=== PATIENT | male | born 1945 | race Caucasian/White ===

== ENCOUNTER 2016-09-02 07:30 | Inpatient (IN) | payer MEDICARE, BC ==
--- NOTE | 2016-08-27 18:28 | HP ---
PREOPERATIVE HISTORY AND PHYSICAL: DATE OF ADMISSION/SURGERY: 09/02/16 DATE OF OFFICE VISIT: 08/27/16 ATTENDING SURGEON: Dr. Rocael Clifton. PROCEDURE: Right total shoulder reverse. CHIEF COMPLAINT: Right shoulder pain. HISTORY OF PRESENT ILLNESS: Mr. Gallardo is a 71-year-old male who presents to the clinic for ongoing right shoulder pain due to severe shoulder osteoarthritis and rotator cuff arthropathy. The patient has failed conservative measures such as intraarticular injections and physical therapy. Therefore, he has agreed to undergo a right total shoulder reverse with Dr. Clifton on 09/02/16. PAST MEDICAL HISTORY: Hypertension, heart disease, cardiomyopathy, history of biventricular ICD placement, and arthritis. PAST SURGICAL HISTORY: Appendectomy, back surgery, biventricular ICD placement. The patient denies a history of complications with anesthesia. MEDICATIONS: 1. Coreg 25 mg 1 by mouth twice a day. 2. Lasix 20 mg 1 by mouth every morning. 3. Candesartan 32 mg 1 by mouth daily. 4. Vitamin B12 injection once a month. 5. Vitamin D3 5000 units 1 by mouth every day. 6. Aspirin 325 mg 1 by mouth every day. 7. Amlodipine 5 mg 1 by mouth daily. ALLERGIES: No known drug allergies. FAMILY HISTORY: Mom, diabetes and cancer. Uncles with heart disease, and father with hypertension. SOCIAL HISTORY: The patient lives with his spouse. He is right-handed. He is a retired dispatcher maintenance. He is a former smoker, he quit in the , he used to smoke 1 pack per day. He drinks alcohol on occasion. He denies illegal drug use. REVIEW OF SYSTEMS: A 14-point review of systems was reviewed with the patient and positive for shortness of breath with exertion, and numbness and tingling due to carpal tunnel syndrome in the left hand. Otherwise negative. The patient denies history of DVT, PE, or bleeding disorder. PHYSICAL EXAMINATION GENERAL: Well-developed, well-nourished, 71-year-old male, in no acute distress. VITAL SIGNS: Height 71, weight 270, pulse 60, blood pressure 132/84, respiratory rate 16, and BMI 33.6. HEENT: Normocephalic and atraumatic. Throat: Clear. NECK: Supple. PULMONARY: Lungs are clear to auscultation bilaterally. No wheezing, rhonchi, or rales. CARDIOVASCULAR: Regular rate and rhythm. S1 and S2. No murmurs, gallops, and rubs. No edema. ABDOMEN: Positive bowel sounds. Soft and nontender. MUSCULOSKELETAL: Right shoulder: Skin is intact, no erythema. Forward flexion to 95, abduction to 90, external rotation to 25, internal rotation to the lateral hip. Pain with rotator cuff testing. +4/5 strength with supraspinatus belly press and bear hug. Tenderness over the joint line. +2 radial pulse. Sensation is intact to light touch distally. NEURO: Alert and oriented x3. Cranial nerves grossly intact. Sensation is intact to light touch. DIAGNOSTIC STUDIES: MRI revealed severe glenohumeral and AC joint arthritis, presence of a loose body, and partial rotator cuff tearing. IMPRESSION: Severe right shoulder arthritis and rotator cuff arthropathy. PLAN: The patient is scheduled to undergo a right total shoulder reverse with Dr. Clifton on 09/02/16. He has been cleared by his paper machine backtender and primary care physician. He was instructed to stop his aspirin 1 week prior to surgery. He will return to the office 10 to 14 days postop for followup and suture removal. A prescription for Percocet was e-prescribed to his pharmacy for postoperative pain management. It is recommended that he get an over-the- counter stool softener to prevent opiate-induced constipation. JONNA SMITH [id number]/[facility] #: [id number] DARLENE
[~2016-09-02 07:30] MED LIST: Buffered Lidocaine 1% SYR 3ML* 3 ML/SYR SYRINGE INTRADERM ONE; Dexamethasone IV* 4 MG/ML 1 ML (4 MG) IV SLOW PU ONE; Famotidine IV* 10 MG/ML 2 ML (20 mg) IV ONE
[2016-09-09] MEDS ORDERED: Metoclopramide TAB* 10 MG PO ONE (06:00)
[2016-09-09] MEDS ORDERED: Gabapentin CAP(*) 300 MG PO ONE (06:00)
[2016-09-09] MEDS ORDERED: Famotidine IV* 10 MG/ML 2 ML (20 mg) IV ONE (06:00)
[2016-09-09] MEDS ORDERED: Acetaminophen IV 1GM/100ML * 100 ML IVPB ONE (06:00)
[2016-09-09] MEDS ORDERED: Buffered Lidocaine 1% SYR 3ML* 3 ML/SYR SYRINGE INTRADERM ONE (06:00)
[2016-09-09] MEDS ORDERED: Metoclopramide TAB* 10 MG ONE (06:19)
[2016-09-09] MEDS ORDERED: Gabapentin CAP(*) 300 MG ONE (06:19)
[2016-09-09] MEDS ORDERED: Famotidine IV* 10 MG/ML 2 ML (20 mg) ONE (06:19)
[2016-09-09] MEDS ORDERED: Buffered Lidocaine 1% SYR 3ML* 3 ML/SYR SYRINGE ONE (06:20)
[2016-09-09] MEDS ORDERED: ceFAZolin 2 GM PREMIX (*) 2 GM/50 ML BAG IVPB ONE (06:20)
[2016-09-09] MEDS ORDERED: Acetaminophen IV 1GM/100ML * 100 ML ONE (06:21)
[2016-09-09] MEDS ORDERED: fentaNYL* 50 MCG/ML 5 ML VIAL (250 MCG VIAL) ONE ×2 (07:03→09:47)
[2016-09-09] MEDS ORDERED: Ondansetron INJ* 2 MG/ML VIAL ONE (07:03)
[2016-09-09] MEDS ORDERED: Midazolam* 1 MG/ML 5 ML VIAL (5 MG) ONE (07:03)
[2016-09-09] MEDS ORDERED: Dexamethasone IV* 4 MG/ML 1 ML (4 MG) ONE (07:03)
[2016-09-09] MEDS ORDERED: Propofol* 10 MG/ML 20 ML BTL IV PUSH ONE (07:03)
[2016-09-09] MEDS ORDERED: Lidocaine 2% PF * 5 ML VIAL ONE (07:03)
[2016-09-09] MEDS ORDERED: Rocuronium* 10 MG/ML VIAL ONE (07:03)
[2016-09-09] MEDS ORDERED: ROPIVACAINE 5 MG/ML 30 ML BTL (0.5%) ONE (07:03)
[2016-09-09] MEDS ORDERED: Ketorolac INJ* 30 MG/ML 1 ML VIAL ONE (07:03)
[2016-09-09] MEDS ORDERED: Phenylephrine INJ* 10 MG/ML 1 ML VIAL (10 MG) ONE ×2 (07:03→10:44)
[2016-09-09] MEDS ORDERED: KETAMINE HCL* 50 MG/ML 10 ML VIAL ONE (07:03)
[2016-09-09] MEDS ORDERED: Bupivacaine 0.5% SDV PF* 30 ML VIAL ONE (07:47)
[2016-09-09] MEDS ORDERED: Ondansetron INJ* 2 MG/ML VIAL IV PRN ×2 (09:39→12:02)
[2016-09-09] MEDS ORDERED: HYDROmorphone INJ* 1 MG/ML CARPUJECT SYRINGE IV PRN (09:39)
[2016-09-09] MEDS ORDERED: fentaNYL* 50 MCG/ML 2 ML VIAL (100 MCG VIAL) IV PRN (09:39)
[2016-09-09] MEDS ORDERED: HYDROmorphone INJ* 1 MG/ML CARPUJECT SYRINGE ONE ×2 (11:43→12:53)
[2016-09-09] MEDS ORDERED: Acetaminophen TAB* 325 MG PO PRN (12:02)
[2016-09-09] MEDS ORDERED: oxyCODONE TAB* 5 MG TAB PO PRN (12:02)
[2016-09-09] MEDS ORDERED: Morphine INJ* 2 MG/ML 1 ML CARPUJECT IV PRN (12:02)
[2016-09-09] MEDS ORDERED: Polyethylene Glycol 3350* 17 GM PACKET PO PRN (12:02)
[2016-09-09] MEDS ORDERED: oxyCODONE/Acetamin 5/325 MG* TAB PO PRN (12:02)
[2016-09-09] MEDS ORDERED: Temazepam CAP* 15 MG PO PRN (12:02)
[2016-09-09] MEDS ORDERED: diPHENhydraMINE IV* 50 MG/ML 1 ml VIAL (BENADRYL) IV PRN (12:02)
[2016-09-09] MEDS ORDERED: Enoxaparin(*) 40 MG/0.4 ML SYR SUBCUT SCH (13:00)
--- NOTE | 2016-09-09 13:59 | RAD ---
HISTORY: Postop COMPARISONS: January 20, 2016 VIEWS: 4, frontal and axillary views of the right shoulder FINDINGS: BONE DENSITY: Normal. BONES: The patient is status post right shoulder arthroplasty. There is no hardware failure or osteolysis. JOINTS: There is no arthropathy. ALIGNMENT: There is no dislocation. SOFT TISSUES: Unremarkable. OTHER FINDINGS: None. IMPRESSION: STATUS POST RIGHT SHOULDER ARTHROPLASTY
[2016-09-09] MEDS: oxyCODONE/Acetamin 5/325 MG* TAB PO PRN ×2 (14:00→20:15)
[2016-09-09 14:26] LABS: Hematocrit 41 % (42-52); Hemoglobin 13.7 g/dl (14.0-18.0)
[2016-09-09] MEDS: ceFAZolin 1 GM in Dextrose (*) 1 GM/50 ML BAG IVPB SCH ×2 (16:34→23:49)
--- NOTE | 2016-09-09 17:20 | PN ---
Progress Note - Progress Note Note: Seen and examined at 4 pm. Pt doing well post op from right reverse. Family at bedside. Breathing comfortably. Pain controlled. No complaints. Temp Pulse Resp BP Pulse Ox 97.2 F 60 18 119/68 99 09/09/16 15:27 09/09/16 15:27 09/09/16 15:27 09/09/16 15:27 09/09/16 16:00 NAD. AAOx3. right shoulder dressing in place. arm in sling. SILT 1st DWS, index and long finger, and ulnar aspect of small finger. brisk cap refill. post op xrays reviewed and acceptable A/P 71 M with multiple medical problems s/p right shoulder reverse. post op abx NWB. sling at all times except for PT continue drain with emptying qshift. record drainage hct in AM. heparin and SCDs while in house d/c tomorrow if stable
[2016-09-09] MEDS: Docusate CAP* 100 MG PO SCH (20:15)
[2016-09-10] MEDS: oxyCODONE/Acetamin 5/325 MG* TAB PO PRN ×3 (04:36→13:37)
[2016-09-10 07:29] LABS: BUN/Creatinine Ratio 25.5 (8-20); Calcium 8.4 mg/dL (8.6-10.3); EGFR African American 97.2 (>60); EGFR Non-African American 75.6 (>60); Potassium 4.2 mmol/L (3.5-5.0)
[2016-09-10] MEDS: ceFAZolin 1 GM in Dextrose (*) 1 GM/50 ML BAG IVPB SCH (07:59)
--- NOTE | 2016-09-10 08:17 | PN ---
Progress Note - Progress Note Note: POD#1 from R reverse TSA. doing well. pain controlled. denies numbness/tingling , CP/SOB. mild nausea Temp Pulse Resp BP Pulse Ox 97.7 F 59 16 146/67 96 09/10/16 07:22 09/10/16 07:22 09/10/16 07:22 09/10/16 07:22 09/10/16 07:22 NAD. right shoulder: dressing in place. sling in place. drain in place. able to flex/ext elbow, wrist, and hand. SILT grossly distally. 2+ radial pulse Laboratory Results - last 24 hr 09/09/16 09/10/16 14:19 06:42 Hgb 13.7 L Hct 41 L Sodium 133 Potassium 4.2 Chloride 101 Carbon Dioxide 26 Anion Gap 6 BUN 25 H Creatinine 0.98 Est GFR ( Amer) 97.2 Est GFR (Non-Af Amer) 75.6 BUN/Creatinine Ratio 25.5 H Glucose 133 H Calcium 8.4 L Intake & Output 09/08/16 09/09/16 09/10/16 09/11/16 06:59 06:59 06:59 06:59 Intake Total 3630 Output Total 2100 Balance 1530 Weight 238 lb Intake: IV Fluids 2049 LR 2000 NS 50ML, Cefazolin 2G 50 Oral 1580 Output: Hemovac Amount #1 425 Casanova 1675 A/P POD#1 from R reverse TSA. NWB. PT to work on passive ROM - FF 90, ABD 90, ER 30 need drain output. may d/c drain prior to discharge HCT stable d/c after completed abx, when drain is pulled, and after PT pt to follow up in 10-14 days
[2016-09-10] MEDS ORDERED: Enoxaparin(*) 40 MG/0.4 ML SYR SUBCUT SCH (09:00)
[2016-09-10] MEDS: Docusate CAP* 100 MG PO SCH (09:03)
[2016-09-10 11:24] VITALS: BP 138/55
--- NOTE | 2016-09-10 12:21 | OP ---
DATE OF OPERATION: 09/09/16 - ROOM #352 DATE OF : 47 SURGEON: Rocael Clifton MD ASSISTANTS: 1. JONNA Vinson. 2. JONNA Mcneil ANESTHESIOLOGIST: Dr. Álvaro Styles. ANESTHESIA: General. PRE-OP DIAGNOSIS: Right shoulder primary osteoarthritis with rotator cuff tendinitis. POST-OP DIAGNOSIS: Right shoulder primary osteoarthritis with rotator cuff tendinitis. OPERATIVE PROCEDURE: Right shoulder reverse shoulder arthroplasty and open biceps tenodesis. COMPLICATIONS: None. ESTIMATED BLOOD LOSS: 250 cc. OUTPUT: One drain placed intra-articularly. IMPLANTS USED: A Tornier Aequalis reversed to threaded post base plate which was 29 mm in diameter with a 29 mm base and a 40 mm length, centered Glenosphere sized 42 mm, size 7B Aequalis Flex humeral stem and a center reversed tray with a size 6 mm poly. INDICATIONS: Antelmo Gallardo is a 71-year-old male who has had ongoing right shoulder pain with severe osteoarthritis and rotator cuff arthropathy. He has failed conservative management including injections and physical therapy. It is impacting his quality of living. After a discussion about the risks and benefits of surgery, he has elected to proceed. He underwent preoperative clearance by his primary care doctor as well as his family and consumer sciences professor who have stabilized him and directed how to handle his care in the perioperative period. Risks and benefits were discussed at length which included, but are not limited to, bleeding, infection, damage to nerves, vessels, surrounding structures, the wound not healing, persistent pain, need for further surgery, stiffness, fracture, incomplete relief of symptoms, dislocation, stiffness, loss of use, risk of DVT, risk of stroke, heart attack, , as well as risk of anesthesia. He has elected to proceed. DESCRIPTION OF PROCEDURE: The patient was greeted in the preoperative area by the attending surgeon. Correct extremity was marked. Consent was confirmed. The patient was then brought back to the operating suite where he was placed in the supine position on the operating table. He then underwent A-line placement in his left hand by the anesthesiologist. The patient then underwent general anesthesia and endotracheal intubation after which a Casanova was placed. The patient was then positioned on the bed in a lazy beach chair position with 2 pillows under his knee and a pillow on his stomach. After he was secured, the right shoulder was prepped and draped in the usual sterile fashion beginning with chlorhexidine soap and scrub and alcohol wipe, and a final prep with ChloraPrep. Preop ROM was forward flexion to 140, abduction to 90, and ER to 20. A defibrillator was placed on the chest as well as a magnet over his pacemaker device, which was monitored at all times by Anesthesiology. After appropriate surgical pause indicating site, side, and procedure and administration of antibiotics, the deltopectoral incision was made sharply with #15 blade. The soft tissues were carefully dissected. The cephalic vein was readily available deep to the incision. This was then carefully dissected and taken laterally with the deltoid. As the deltopectoral interval was identified , a Kolbel retractor was placed for retraction. A curved blunt Hohmann was placed above the coracoid to help with retraction. This exposed the anterior aspect of the shoulder. The lateral aspect of the short head of the biceps was identified and the clavipectoral fascia was released. The CA ligament was released. Further dissection carried out to show the pectoralis insertion, the proximal 1.5 cm were released. The biceps were then tenodesed at this point using a #5 Ti-Cron suture. Once the biceps tenodesis was done, it was sharply tenotomized just proximal to that. The Metzenbaum scissors was used to follow the biceps trajectory proximally, which found the biceps groove and allowed access to the joint. At this point, the subscap was carefully elevated using a subscap peel approach with electrocautery device. A #5 Ti-Cron was used as a tack suture to allow for retraction. The shoulder was very stiff prior to surgery, and therefore gentle external rotation was done to release this. A good deal of the supraspinatus tendon was still intact and some of this required releasing. As the shoulder was gently externally rotated, this demonstrated a very large anterior inferior spur and complete cartilage loss with grade 4 changes. Again carefully this was released with care to try to release the capsule. The 3 sisters were identified and then suture ligated and then cut with electrocautery device. Gently as the inferior spur was identified , a Rivas was used to help expose with care to hug it to the bone so there was no risk to the neurovascular bundle. A spur was identified, again it was quite large. This was carefully removed so as to expose the neck better using an osteotome and a rongeur. This again was a very large spur and carried throughout the inferior humerus. Again this was meticulously done. As the spur was identified, once it was carefully released with a Darrach retractor in the joint, this has allowed for exposure of the humeral head. At this point, the neck head was then marked out using the Bovie device. The sagittal saw was used to make the provisional head cut. This was removed en liz. The humerus was then prepared in usual fashion, beginning with a canal finder and then the sounding device was set to about 20 degrees of retroversion. This was sounded all the way to a size 8. Broaching began starting at the starting broach and then sequentially stopped at around 6, which had a good metaphyseal purchase. Head protector was then used to attach to the stem and the stem was then replaced back into the joint. Attention was directed to the glenoid. The posterior glenoid retractor was then placed into the joint and with gentle constant pressure on the posterior aspect, the Hohmann was placed proximally. The subscap was then released of its adhesions to the glenohumeral ligaments. The subscap was then fully mobilized. The neck retractor was then used to expose the anterior aspect of the labrum. A needle-type Bovie was then used to remove the labrum en liz and exposed the bone. There was quite a bit of glenoid wear. This was first determined on the CT scan, which showed more posterior wear than anteriorly. There were osteo-phytes as well anteriorly. Once the labrum was released superiorly all the way to the 5 o'clock position, repositioning the retractors and with gentle tension on the inferior labrum, the needle-tip Bovie was used to release directly off the bone inferior from this 5 o'clock to 7 o'clock position of the labrum to expose the inferior aspect of the scapula. Again, there was quite a bit of wear, there were grade 4 changes. Once this was done, a provisional marking at the center of the glenoid was then made. The size 29 and 28 guide was then placed in the joint and then the starting pin was placed. This was about to a depth of 36 to 37 mm from the measuring guide. The reaming device was then used and again more bone was reamed anteriorly due to the posterior wear. The size 29 hand bunch maker was then used to complete the reaming and allow for the Glenosphere to sit properly. All the soft tissues were carefully protected during this time. After this was done, the 8 mm cannulated drill bit was then used to drill the 8 mm hold and a 6.5 mm drill was used to drill bicortically. This was then tapped to a depth of about 40 mm. The size 40 mm length baseplate was chosen with a 29-mm Glenosphere set. This was then screwed into place with excellent purchase. Then the 4-0 locking screws were then drilled appropriately to the appropriate depth and length with care to try to place superior anterior as well as inferior posterior. All 4 screws were passed and the 29 Glenosphere was then brought to the field and it was gently impacted into place with good purchase. The set screw was then used to screw it down with good fixation. Carefully, the retractors were removed and the shoulder was then delivered through the wound. At this point, there was a large loose body that was identified that was approximately 3 cm x 3 cm in the inferior recess. This was carefully removed in total. The stem was found to have loosened in the humerus. This was then carefully removed. It was determined that the initial neck cut was not low enough, therefore after doing more releases and a revision humeral cut. Once the sagittal saw was used to do the humeral cut again, the reaming began again starting with a size 5 broach, with again 20 degrees offset guide placed. This was then broached up to a size 7 B stem with excellent purchase. The reamer was then used to ream any large edges of bone. Any excess bone was removed. At this point, the center tray and the trial poly were placed on the humeral prosthesis and the shoulder was reduced. It was found to reduce quite well with good fit. There was normal amount of shuck, forward flexion to about 150, abduction to about 100 degrees, external rotation to about 35 degrees. The implants were chosen and brought to the back table. The shoulder was dislocated again. The humeral stem with the poly was removed en liz and prepared on the back table by the attending surgeon. At this point, decision was made to try to repair the subscap. The provisional drill holes were used to place #5 Ethibond sutures. Attention on the subscap was quite significant, however; therefore there was a chance it was not going to be able to be repaired. The final implants were prepared on the back table by the attending surgeon. These were impacted with good fixation. This was then brought back to the shoulder, was brought up to the operative field and impacted into position with good fit. The shoulder was then reduced and taken through range of motion which was the same. The sutures were then attempted to pass through the subscap. Again the tension was quite tight and a decision was made to not repair the subscap. Sutures were then removed. The wound was then copiously irrigated with sterile saline. A drain was placed in the intraarticular space. The deltopectoral interval was closed with #5 Ti-Cron in an interrupted fashion to leonides the deltopectoral interval. The wound was irrigated again and the subcutaneous tissues were closed with 2-0 Vicryl and the skin with 3-0 Monocryl. Sterile dressings were applied. Marcaine 30 cc were injected about the wound. A Cryo/Cuff and a regular sling were then placed on the patient and he was awoken from anesthesia and transferred to PACU in stable condition. POSTOPERATIVE PLAN: He will be admitted overnight with 24 hours of perioperative antibiotics as well as the Casanova will continue until postop day # 1. The drain will continue again till postop day #1 and we will follow his hematocrit overnight. He will likely be discharged on postop day #1. He will be allowed passive motion and forward flexion to 90, abduction to about 90, external rotation to 30 degrees. He will be allowed elbow, wrist, and hand range of motion and pendulum exercises. He is not allowed to weight bear. I will see the patient back in 10 to 14 days. DVT prophylaxis considered but deferred and will be done in the hospital with subcutaneous heparin, but he will be discharged without DVT prophylaxis. CC: PCP, Dr. De Leon* [id number]/[facility] #: [id number] DARLENE
--- NOTE | 2016-09-10 12:30 | PN ---
Progress Note - Progress Note Note: Patient seen OOB in chair doing well. Ready to be discharged home Drain with about 250 cc blood in hemovac drain No active drainage from incision Hemovac drain tube pulled, tip intact, no complications Discharge home today follow up in 10- 14 days as scheuled with Dr. Clifton Patient states he has pain medication and stool softener at home
--- NOTE | 2016-09-12 01:15 | DS ---
DISCHARGE SUMMARY: DATE OF ADMISSION: 09/09/16 DATE OF DISCHARGE: 09/10/16 ADMITTING PHYSICIAN: Rocael Clifton MD. ADMITTING DIAGNOSIS: Right shoulder arthritis. DISCHARGE DIAGNOSIS: Right shoulder arthritis. HISTORY OF PRESENT ILLNESS: Antelmo Gallardo is a 71-year-old gentleman who was admitted for elective right shoulder reverse arthroplasty, which took place on 09/09/16. He received perioperative antibiotics and a Casanova was placed intraoperatively. He tolerated the procedure well. Intraoperatively, a drain was placed. He was transferred to the PACU in stable condition. He was kept on floor overnight. Labs and vitals were obtained. He was hemodynamically stable with a stable hematocrit. The drain output was drained overnight and diminished by the morning. His pain is well controlled by oral pain medication. The drain was removed on postop day 1 with a tip intact. He was instructed with physical therapy exercises on what he could do and he received 24 hours of postoperative antibiotics. Once his pain was controlled, he met his physical therapy guidelines and met discharge criteria, he was discharged home in satisfactory condition. DISCHARGE MEDICATIONS: Include all of his admitting medications includin. Amlodipine. 2. Aspirin. 3. Candesartan. 4. Coreg. 5. Lasix. 6. Vitamin B12. 7. Vitamin D3. 8. He was discharged with oxycodone for additional pain medication. DISCHARGE CONDITION: Good. FOLLOW UP: He will follow up with Dr. Clifton in 10 to 14 days. He will follow up with his PCP as needed. [id number]/[facility] #: [id number] DARLENE
== END 2016-09-10 13:40 | disposition home or self-care (01) | DRG 483 ==
LOC: AA 09-09 05:59 → SSU 09-09 13:28
PROVIDERS: ADMIT Orthopaedic Surgery; ATTEND Orthopaedic Surgery
PROC: 0RRJ00Z Replacement of Right Shoulder Joint with Reverse Ball and Socket Synthetic Substitute, Open Approach (ICD-10-PCS; principal; 2016-09-10)
PROC: 0LS30ZZ Reposition Right Upper Arm Tendon, Open Approach (ICD-10-PCS; 2016-09-10)
DX: M19.011 Primary osteoarthritis, right shoulder (principal); I42.9 Cardiomyopathy, unspecified; Z79.82 Long term (current) use of aspirin; I10 Essential (primary) hypertension; Z95.810 Presence of automatic (implantable) cardiac defibrillator; Z83.3 Family history of diabetes mellitus; Z82.49 Family history of ischemic heart disease and other diseases of the circulatory system; Z87.891 Personal history of nicotine dependence; G47.33 Obstructive sleep apnea (adult) (pediatric); M75.21 Bicipital tendinitis, right shoulder; E66.9 Obesity, unspecified; E78.2 Mixed hyperlipidemia; Z86.010 Personal history of colon polyps; Z68.34 Body mass index [BMI] 34.0-34.9, adult; Z80.0 Family history of malignant neoplasm of digestive organs; E55.9 Vitamin D deficiency, unspecified
CPT/HCPCS: 36415; 80048; 85014; 85018; 88304; 88311; A9270-GY; C1713; C1776; J0690; J1100; J1170; J1650; J1885; J2250; J2405; J2704; J2795; J3010

== ENCOUNTER 2018-02-22 12:39 | Inpatient (IN) | payer MEDICARE, BC ==
--- NOTE | 2018-02-16 13:40 | HP ---
HISTORY AND PHYSICAL: DATE OF ADMISSION: 02/22/18 PROVIDER: Dr. Rosio Adamson.* (DICTATED BY JONNA GALICIA) HISTORY OF PRESENT ILLNESS: The patient is a 73-year-old gentleman with severe left hip pain over the last few months. He has failed conservative treatment with anti-inflammatories, pain medication and home exercise program. Pain is a 9/10 and he has failed an ultrasound-guided hip injection. He would like to undergo a left total hip arthroplasty with Dr. Rosio Adamson. PAST MEDICAL HISTORY: 1. Hypertension. 2. Heart disease. 3. Heart arrhythmia. 4. Osteoarthritis. PAST SURGICAL HISTORY: 1. Defibrillator placement in 2015. 2. Right reverse total shoulder with Dr. Clifton in 2016. 3. Lumbar spine surgery in 1996. 4. Appendectomy. 5. Cataract excision, left eye in 2016. MEDICATIONS: 1. Amlodipine 5 mg 1 by mouth every day. 2. Coreg 25 mg 1 by mouth twice a day. 3. Lasix 20 mg 1 by mouth every other morning. 4. Candesartan 32 mg 1 by mouth daily. 5. Vitamin B12. 6. Vitamin D3 5000 units. 7. Aspirin 81 mg. ALLERGIES: No known drug allergies. FAMILY HISTORY: Maternal diabetes and cancer. Multiple uncles with heart disease. SOCIAL HISTORY: The patient lives with his . He is retired. Does not smoke or use recreational drugs. Drinks six alcoholic beverages per week. Normally very active with golfing and trap shooting. Right-hand dominant. REVIEW OF SYSTEMS: General: Denies fevers, chills, or night sweats. No known anesthesia problems. HEENT: Denies headaches, lightheadedness, or syncopal episodes. Cardiothoracic: Denies chest pain or heart palpitations. Pulmonary : Denies shortness of breath with exertion, chronic cough, or COPD. GI: Denies any nausea, vomiting, diarrhea, or constipation. : Denies any nocturia, urinary frequency or urgency. MSK: Admits to left hip pain. Denies any chronic or intermittent back pain. Neuro: Denies any paresthesias or numbness. Integument: Denies any abrasions, lesions, rashes, lumps, or open sores. PHYSICAL EXAMINATION GENERAL: The patient is alert and oriented x3 with appropriate mood and affect , appropriate dress and hygiene. No acute distress. HEENT: Normocephalic, atraumatic. Hearing and vision grossly intact. PULMONARY: Lungs are clear to auscultation bilaterally with no wheezes, rales, or rhonchi. CARDIO: Regular rate and rhythm. Normal S1 and S2. No appreciable S3 or S4. No murmurs, rubs, or gallops. MSK: Left lower extremity: Inspection of the left hip reveals no erythema or ecchymosis. Skin is warm, dry, and intact. Range of motion of the left hip is 90 degrees of flexion, 0 degrees of internal and external rotation with pain with attempted movement. He has a positive log roll with pain. Negative straight leg raise. He is able to slightly abduct the hip with groin pain. He is neurovascularly intact distally with a 2+ dorsalis pedis pulse. IMPRESSION: Left hip osteoarthritis, severe, end-stage. PLAN: To the OR for a left total hip arthroplasty to be performed by Dr. Adamson on 02/22/18. He will follow up in 10 to 14 days postoperatively for suture removal. Informed consent was obtained today and the risks, benefits, and complications were reviewed with the patient by Dr. Adamson. JONNA GALICIA [id number]/[facility] #: [id number] DARLENE
[~2018-02-22 12:39] MED LIST changes: +Buffered Lidocaine 0.9% SYRIN* 5 ML/SYR SYRINGE INTRADERM ONE; -Buffered Lidocaine 1% SYR 3ML* 3 ML/SYR SYRINGE INTRADERM ONE; -Dexamethasone IV* 4 MG/ML 1 ML (4 MG) IV SLOW PU ONE; -Famotidine IV* 10 MG/ML 2 ML (20 mg) IV ONE
[2018-02-22] MEDS ORDERED: ceFAZolin 2 GM PREMIX (*) 2 GM/50 ML BAG IVPB ONE (13:04)
[2018-02-22] MEDS ORDERED: Bupivacaine 0.5% PF 10 ML VIAL INJ ONE ×2 (15:01→15:19)
[2018-02-22] MEDS ORDERED: Midazolam* 1 MG/ML 5 ML VIAL (5 MG) ONE (15:12)
[2018-02-22] MEDS ORDERED: fentaNYL* 50 MCG/ML 2 ML VIAL (100 MCG VIAL) ONE ×2 (15:30→16:46)
[2018-02-22] MEDS ORDERED: Midazolam* 1 MG/ML 2 ML VIAL (2 MG) ONE (16:09)
[2018-02-22] MEDS ORDERED: Ondansetron INJ* 2 MG/ML VIAL IV PRN ×2 (17:05→17:06)
[2018-02-22] MEDS ORDERED: fentaNYL* 50 MCG/ML 2 ML VIAL (100 MCG VIAL) IV PRN (17:05)
[2018-02-22] MEDS ORDERED: Naloxone* 0.4 MG/ML 1 ML VIAL IV PRN (17:05)
[2018-02-22] MEDS ORDERED: HYDROcodone/ACETAMIN 5-325 MG* 1 TAB PO PRN (17:05)
[2018-02-22] MEDS ORDERED: oxyCODONE/Acetamin 5/325 MG* TAB PO PRN ×2 (17:05→17:06)
[2018-02-22] MEDS ORDERED: HYDROmorphone INJ* 0.5 MG/0.5 ML SYRINGE IV PRN (17:05)
[2018-02-22] MEDS ORDERED: Cyclobenzaprine TAB* 10 MG PO PRN (17:06)
[2018-02-22] MEDS ORDERED: Polyethylene Glycol 3350* 17 GM PACKET PO PRN (17:06)
[2018-02-22] MEDS ORDERED: Magnesium Hydroxide LIQ* 30 ML UDC PO PRN (17:06)
[2018-02-22] MEDS ORDERED: oxyCODONE TAB* 5 MG TAB PO PRN (17:06)
[2018-02-22] MEDS ORDERED: diPHENhydraMINE IV* 50 MG/ML 1 ml VIAL (BENADRYL) IV PRN (17:06)
[2018-02-22] MEDS ORDERED: Bisacodyl SUPP* 10 MG SUPP PR PRN (17:06)
[2018-02-22] MEDS ORDERED: Ondansetron TAB* 4 MG PO PRN (17:06)
--- NOTE | 2018-02-22 17:53 | RAD ---
INDICATION: Left hip total replacement surgery. COMPARISON: Comparison is made with a prior x-ray study of the left hip from January 13, 2018. TECHNIQUE: A single portable AP view of the left hip was obtained in the operating room. FINDINGS: The patient is undergoing a total left hip replacement surgery. The acetabular prostheses is in place and there is a femoral prostheses template in place. IMPRESSION: INTRAOPERATIVE CONTROL FILMS.
[2018-02-22] MEDS ORDERED: EPHEDrine (Pressors)* 50 MG/ML VIAL ONE (17:55)
[2018-02-22] MEDS ORDERED: Acetaminophen TAB* 325 MG PO SCH (18:00)
--- NOTE | 2018-02-22 18:58 | RAD ---
INDICATION: Status post total left hip replacement surgery. COMPARISON: Comparison is made with a prior study from January 13, 2018. TECHNIQUE: An AP view of the pelvis and frontal and lateral views of the left hip were obtained. FINDINGS: The patient is status post total left hip replacement surgery. The bones and prostheses are in normal alignment. There is a small amount of air within the lateral soft tissues consistent with the patient's recent surgery. There is moderate osteoarthritic change in the right hip. IMPRESSION: STATUS POST TOTAL LEFT HIP REPLACEMENT SURGERY.
[2018-02-22] MEDS ORDERED: hydrALAZINE IV* 20 MG/ML VIAL ONE (19:15)
[2018-02-22] MEDS ORDERED: hydrALAZINE IV* 20 MG/ML VIAL IV SLOW PU ONE (19:16)
[2018-02-22] MEDS ORDERED: Acetaminophen TAB* 325 MG ONE (19:34)
[2018-02-22] MEDS ORDERED: Carvedilol TAB* 25 MG PO SCH (21:00)
[2018-02-22] MEDS: Morphine VIAL* 4 MG/ML VIAL (1 ml vial) IV PRN ×2 (21:01→23:13)
[2018-02-22] MEDS: Magnesium Hydroxide LIQ* 30 ML UDC PO SCH (21:51)
[2018-02-22] MEDS: Docusate CAP* 100 MG PO SCH (21:51)
[2018-02-22] MEDS ORDERED: Warfarin TAB(*) 6 MG PO ONE (22:00)
--- NOTE | 2018-02-22 22:34 | CONS ---
CC: Dr. De Leon; Dr. Rosio Adamson * CONSULTATION REPORT: DATE OF CONSULT: 02/22/18 PRIMARY CARE PROVIDER: Dr. Dwight De Leon. PHYSICIAN REQUESTING CONSULT: Dr. Rosio Adamson. ATTENDING PHYSICIAN: Dr. Zak Ovalle (dictated by Andria Cheatham NP). REASON FOR CONSULT: Co-medical management in a patient with a history of hypertension, cardiomyopathy, systolic heart failure. HISTORY OF PRESENT ILLNESS: Mr. Ponce is a 73-year-old male with past medical history significant for hypertension, systolic heart failure, osteoarthritis, obstructive sleep apnea, vitamin B12 deficiency, carpal tunnel syndrome, left bundle branch block, hyperlipidemia, who presented to the hospital for an elective left total hip arthroplasty with Dr. Adamson. The patient states that leading up to his surgery today, he has been in his usual state of health. He denies any fevers, chills, chest pain, shortness of breath , nausea, vomiting, diarrhea, lower extremity swelling. He denies any urinary symptoms and states that he has been doing well. The hospitalists were asked to evaluate the patient in consultation to assist with co-medical management during his hospitalization. The patient was examined in PACU and was noted to be hypertensive. He received a dose of hydralazine with plans to give him his carvedilol when he reached the floor from PACU. The patient denies any pain at this time. PAST MEDICAL HISTORY: 1. Hypertension. 2. Cardiomyopathy. 3. Osteoarthritis. 4. Systolic congestive heart failure, last EF 45% to 50%. 5. Obstructive sleep apnea. 6. Vitamin B12 deficiency. 7. Carpal tunnel syndrome. 8. History of left bundle branch block. 9. Hyperlipidemia. 10. Morbid obesity, BMI of 31. PAST SURGICAL HISTORY: 1. Status post defibrillator pacemaker placement. 2. Status post right reverse total shoulder. 3. Status post lumbar spine surgery. 4. Status post appendectomy. 5. Status post cataract extraction of the left eye. MEDICATIONS: Home medications include: 1. Amlodipine 5 mg oral daily. 2. Coreg 25 mg oral twice daily. 3. Furosemide 20 mg oral every other day. 4. Candesartan 32 mg oral daily. 5. Vitamin B12 once monthly. 6. Vitamin D3 5000 units oral daily. 7. Aspirin 81 mg oral daily. 8. Amoxicillin 2000 mg 1 hour prior to dental procedure. ALLERGIES: No known drug allergies. FAMILY HISTORY: The patient's mother had a history of diabetes and colon cancer and passed at age 89. His multiple uncles with history of heart disease. His father passed at age 52 from a brain aneurysm. SOCIAL HISTORY: The patient lives with his . He denies tobacco or recreational drug use. He is a former smoker. He quit smoking in the . He has an approximate 40-year, anbbm-gxmjvdo-qazv-a-day smoking history. He reports drinking 1 to 2 glasses of wine daily. REVIEW OF SYSTEMS: I performed an 11-point review of systems. All the pertinent positives and negatives are mentioned in the history of present illness. The remaining review of systems is negative. PHYSICAL EXAM: Vital Signs: Temperature 96.8, heart rate 59, respiratory rate 16, O2 sat 98% on room air, blood pressure 178/101. General Appearance: The patient is alert, pleasant, and appears to be in no acute distress. HEENT: Normocephalic, atraumatic. Pupils are equal and reactive to light. Respiratory : There is no accessory muscle use. The lungs are clear to auscultation bilaterally, but diminished. Cardiovascular: Regular rate and rhythm. S1, S2 present. There are no murmurs, rubs, or gallops heard. Abdomen: Soft, nontender, nondistended. There are bowel sounds present x4. Extremities: There is no lower extremity edema. DP and PT pulses are 2+ and symmetric. Musculoskeletal: There is no clubbing or cyanosis noted. The patient exhibits good strength in all extremities. Psychological: The patient is calm and cooperative. Skin: No rashes or abnormalities seen. The patient has a dressing that is clean, dry, and intact to his left hip. LABORATORY DATA: Preoperative labs from 02/11/18 reveal sodium 138, potassium 3.8, chloride 99, CO2 of 30, BUN 21, creatinine 0.85, glucose 91. White blood cell count 6.6, hemoglobin 15.0, hematocrit 44, platelet count 168. Urine culture with no growth. IMPRESSION: Mr. Ponce is a 73-year-old male with past medical history significant for obstructive sleep apnea, vitamin B12 deficiency, left bundle branch block, hyperlipidemia, hypertension, cardiomyopathy, systolic congestive heart failure, morbid obesity, and osteoarthritis, who presents to the hospital for an elective left total hip arthroplasty with Dr. Rosio Adamson. ASSESSMENT/PLAN: 1. Osteoarthritis. The patient is status post left total hip arthroplasty with Dr. Adamson. He is postop day 1. Management will be per Orthopedic Surgery. He will have physical therapy, occupational therapy in the morning. We will trend his H and H. He will have a urinary catheter in place until the morning. 2. Hypertension. The patient reports recently being hypertensive. I am going to continue him on his amlodipine, Coreg, Lasix, and candesartan. His family has been asked to bring in his candesartan to start in the morning. In the PACU , he was noted to be hypertensive with systolic blood pressures up in the 180s. He received a dose of hydralazine. We will continue to follow this and given further medications if needed. For now, the plan will be to give him his evening carvedilol and see what his blood pressure does. 3. Cardiomyopathy and systolic heart failure. Last ejection fraction was 45% to 50% when he had an echo done preoperatively. He will have daily weights, strict Is and Os. At this point, he has received over 2 L of IV fluids in the OR. We are going to hold on further fluids at this time. He has no sign of an exacerbation at this time. We will continue his carvedilol, furosemide, and candesartan. 4. Obstructive sleep apnea. The patient is not currently on a device. He will be continued on oxygen 2 L while sleeping. 5. Morbid obesity. The patient's BMI is 33. He may benefit from a [facility] referral at discharge. 6. Hyperlipidemia. The patient is not currently on a statin as he has been intolerant to statins in the past. He will continue to follow with Cardiology and his primary care provider regarding this. 7. Fluids, electrolytes, and nutrition. The patient should be on a low-sodium diet. 8. DVT prophylaxis. The patient will be on Lovenox bridged to warfarin per Orthopedics. 9. Code status. Full code. 10. Disposition. Inpatient with disposition per Orthopedic Surgery. TIME SPENT: Time for this consultation was approximately 50 minutes, greater than half of that was spent with the patient and family discussing medications, past medical history, the events leading up to his arrival today, and performing a physical examination. Case has been reviewed with the attending, Dr. Ovalle, who agrees with the plan of care. ANDRIA CHEATHAM, SHOE SEWING MACHINE OPERATOR AND TENDER [id number]/[facility] #: [id number] [facility]ENTERN[facility]
[2018-02-22] MEDS: ceFAZolin 1 GM in Dextrose (*) 1 GM/50 ML BAG IVPB SCH (23:14)
[2018-02-22] MEDS: Carvedilol TAB* 25 MG PO SCH (23:14)
[2018-02-23] MEDS: oxyCODONE/Acetamin 5/325 MG* TAB PO PRN ×2 (02:39→10:37)
[2018-02-23] MEDS: ceFAZolin 1 GM in Dextrose (*) 1 GM/50 ML BAG IVPB SCH ×2 (06:10→14:26)
[2018-02-23] MEDS: Acetaminophen TAB* 325 MG PO SCH ×3 (06:10→21:37)
[2018-02-23 06:50] LABS: Hematocrit 35 % (42-52); Hemoglobin 12.1 g/dl (14.0-18.0); Mean Platelet Volume 8.3 um3 (7.4-10.4); Platelet Count 125 10^3/ul (150-450)
[2018-02-23 06:55] LABS: INR 1.04 (0.77-1.02)
[2018-02-23 06:58] LABS: EGFR Non-African American 77.9 (>60)
[2018-02-23] MEDS: Magnesium Hydroxide LIQ* 30 ML UDC PO SCH ×2 (09:29→21:37)
[2018-02-23] MEDS: Docusate CAP* 100 MG PO SCH ×2 (09:30→21:37)
[2018-02-23] MEDS: amLODIPine TAB* 5 MG PO SCH (09:30)
[2018-02-23] MEDS: Carvedilol TAB* 25 MG PO SCH ×2 (09:30→21:37)
--- NOTE | 2018-02-23 10:46 | PN ---
Subjective Date of Service: 02/23/18 Interval History: Mr. Gallardo reports doing well overall. Complains of occasional L hip pain, relieved with narcotics. Had his PT this morning, did well ambulating. Denies chest pain, palpitations or difficulty breathing. His blood pressure has been "good" since leaving PACU last evening. Casanova catheter was discontinued this AM , no trouble voiding. He has no other complaints today. Family History: Unchanged from Admission Social History: Unchanged from Admission Past Medical History: Unchanged from Admission Objective Active Medications: Acetaminophen (Tylenol Tab*) 975 mg PO Q8HR [facility] Last Admin: 02/23/18 06:10 Dose: 975 mg Amlodipine Besylate (Norvasc Tab*) 5 mg PO QAM [facility] Last Admin: 02/23/18 09:30 Dose: 5 mg Bisacodyl (Dulcolax Supp*) 10 mg RI DAILY PRN PRN Reason: constipation Carvedilol (Coreg Tab*) 25 mg PO BID [facility] Last Admin: 02/23/18 09:30 Dose: 25 mg Cyclobenzaprine HCl (Flexeril Tab*) 10 mg PO TID PRN PRN Reason: SPASMS Last Admin: 02/23/18 06:11 Dose: 10 mg Diphenhydramine HCl (Benadryl Iv*) 12.5 mg IV Q6H PRN PRN Reason: PRURITIS Last Admin: 02/23/18 02:39 Dose: 12.5 mg Docusate Sodium (Colace Cap*) 100 mg PO BID [facility] Last Admin: 02/23/18 09:30 Dose: 100 mg Enoxaparin Sodium (Lovenox(*)) 40 mg SUBCUT Q24H [facility] Furosemide (Lasix Tab*) 20 mg PO EVERY OTHER DAY [facility] Cefazolin Sodium/Dextrose (Kefzol 1 Gm In Dextrose Duplex (*)) 1 gm in 50 mls @ 200 mls/hr IVPB Q8H [facility] Stop: 02/23/18 14:14 Last Admin: 02/23/18 06:10 Dose: 200 mls/hr Lactulose (Lactulose*) 30 ml PO Q6H PRN PRN Reason: constipation Last Admin: 02/23/18 06:10 Dose: 30 ml Magnesium Hydroxide (Milk Of Magnesia Liq*) 30 ml PO BID [facility] Last Admin: 02/23/18 09:29 Dose: 30 ml Magnesium Hydroxide (Milk Of Magnesia Liq*) 30 ml PO Q6H PRN PRN Reason: constipation Morphine Sulfate (Morphine Vial*) 2 mg IV Q2H PRN PRN Reason: PAIN Last Admin: 02/22/18 23:13 Dose: 2 mg Ondansetron HCl (Zofran Inj*) 4 mg IV Q6H PRN PRN Reason: nausea Ondansetron HCl (Zofran Tab*) 4 mg PO Q6H PRN PRN Reason: NAUSEA Oxycodone HCl (Roxycodone Tab*) 10 mg PO Q4H PRN PRN Reason: SEVERE PAIN Last Admin: 02/23/18 07:48 Dose: 10 mg Oxycodone/Acetaminophen (Percocet 5/325 Tab*) 1 tab PO Q4H PRN PRN Reason: PAIN Oxycodone/Acetaminophen (Percocet 5/325 Tab*) 2 tab PO Q4H PRN PRN Reason: PAIN Last Admin: 02/23/18 10:37 Dose: 2 tab Pharmacy Profile Note (Coumadin Daily Reminder*) 0 note FOLLOW UP 1700 LOPEZ Polyethylene Glycol/Electrolytes (Miralax*) 17 gm PO DAILY PRN PRN Reason: Constipation Last Admin: 02/23/18 02:45 Dose: 17 gm Vital Signs - 8 hr 02/23/18 02/23/18 02/23/18 06:11 07:21 07:48 Temperature 97.7 F Pulse Rate 55 Respiratory 18 16 18 Rate Blood Pressure 122/62 (mmHg) O2 Sat by Pulse 95 Oximetry 02/23/18 02/23/18 02/23/18 08:00 09:30 09:31 Temperature Pulse Rate 61 Respiratory 18 18 Rate Blood Pressure 112/65 (mmHg) O2 Sat by Pulse 95 Oximetry 02/23/18 02/23/18 09:37 10:37 Temperature Pulse Rate Respiratory 18 18 Rate Blood Pressure (mmHg) O2 Sat by Pulse Oximetry Oxygen Devices in Use Now: None Appearance: A healthy appearing older male, comfortable on his chair, in NAD. Eyes: No Scleral Icterus, PERRLA Ears/Nose/Mouth/Throat: Clear Oropharnyx, Mucous Membranes Moist Neck: NL Appearance and Movements; NL JVP, Trachea Midline Respiratory: Symmetrical Chest Expansion and Respiratory Effort, Clear to Auscultation Cardiovascular: NL Sounds; No Murmurs; No JVD, RRR Abdominal: NL Sounds; No Tenderness; No Distention Extremities: No Edema, - - Left hip dressing clean, dry and intact. sensation intact distally. Neurological: Alert and Oriented x 3, NL Sensation Nutrition: Taking PO's Result Diagrams: 02/23/18 06:31 02/23/18 06:31 Additional Lab and Data: . Microbiology and Other Data: . Diagnostic Imaging: Patient Name: KANE GALLARDO Medical Record#: [id number] Ordering Physician: Anne-Marie COYLE Acct.#: [id number] : 1945 Age: 73 Sex: M Location: AM ADMITS Exam Date: 02/22/181705 ADM Status: ADM IN Order Information: HIP LEFT 2 VIEWS AND PELVIS Accession Number: [id number] CPT: 17155 INDICATION: Status post total left hip replacement surgery. FINDINGS: The patient is status post total left hip replacement surgery. The bones and prostheses are in normal alignment. There is a small amount of air within the lateral soft tissues consistent with the patient's recent surgery. There is moderate osteoarthritic change in the right hip. IMPRESSION: STATUS POST TOTAL LEFT HIP REPLACEMENT SURGERY. <Electronically signed by Antoni Bergman MD in OV> 02/22/181854 Dictated By: Antoni Bergman MD Dictated Date/Time: 02/22/181854 Transcribed Date/Time: 02/22/18 EKG Data: . Assess/Plan/Problems-Billing Assessment: A 73 y/o male with multiple medical issues, including HTN, HLD, cardiomyopathy with systolic heart failure and sleep apnea, who is post-op day #1, s/p left total hip replacement, nedically stable. - Patient Problems (1) Status post total hip replacement, left Current Visit: Yes Status: Acute Comment: - Management per ortho team - PT eval to continue - Per patient, daughter is also a PT, plans for discharge to home tomorrow. - Pain control (2) Hypertension Current Visit: Yes Status: Acute Comment: - Was hypertensive at PACU - BP well controlled now - Continue Amlodipine and Coreg (3) Cardiomyopathy Current Visit: Yes Status: Acute Comment: - Stable, no signs of exacerbations - Continue Lasix, Carvedilol and sartan (4) Hyperlipidemia Current Visit: Yes Status: Acute Comment: - Has been intolerant to statin therapy in the past - Will continue to F/U with his career development consultant as an outpatient (5) Obstructive sleep apnea Current Visit: Yes Status: Acute Comment: - No C-PAP use at home - Continue oxygen supplementation as needed during the day, NC at night. (6) Morbid obesity Current Visit: Yes Status: Acute Comment: - Supportive care - May benefit from referral to [facility] upon discharge (7) DVT prophylaxis Current Visit: Yes Status: Acute Comment: - Lovenox bridging to Coumadin per ortho team (8) Full code status Current Visit: Yes Status: Acute Status and Disposition: Inpatient. Anticipate discharge per ortho team likely by tomorrow. Resume all home meds as precribed upon discharge.
--- NOTE | 2018-02-23 10:54 | PN ---
Progress Note - Progress Note Date of Service: 02/23/18 SOAP: Subjective: []Patient seen at OOB in chair with his present. He feels well with 5/10 hip pain. Denies CP, SOB, dizziness or nausea. Objective: []General: Well appearing, NAD LLE: left hip dressing CDI without surrounding erythema, thigh is soft. DP 2+, sensation intact distally, DF/PT intact BL LE supple and nontender without erythema, edema or palpable cords Assessment: []POD 1 SP left total hip arthroplasty Plan: []WBAT PT/OT lovenox bridge to coumadin 6 mg today Vital Signs Temp 97.7 F 02/23/18 07:21 Pulse 61 02/23/18 09:30 Resp 18 02/23/18 10:37 BP 112/65 02/23/18 09:30 Pulse Ox 95 02/23/18 08:00 Intake & Output 02/22/18 02/23/18 02/23/18 18:59 06:59 18:59 Intake Total 2300 1835 225 Output Total 675 600 Balance 1625 1235 225 Weight 238 lb 256 lb 14.4 oz Intake: IV Fluids 2300 145 ABX - CEFAZOLIN 45 LR 2300 100 IVPB 50 ABX - CEFAZOLIN 50 Oral 1640 225 Output: Casanova 225 600 Residual 200 Casanova 16 Fr 200 Estimated Blood Loss 250 Laboratory Last Values Hgb 12.1 g/dl (14.0-18.0) L 02/23/18 06:31 Hct 35 % (42-52) L 02/23/18 06:31 Plt Count 125 10^3/ul (150-450) L 02/23/18 06:31 MPV 8.3 um3 (7.4-10.4) 02/23/18 06:31 INR (Anticoag Therapy) 1.04 (0.77-1.02) H 02/23/18 06:31 Sodium 133 mmol/L (135-145) L 02/23/18 06:31 Potassium 4.5 mmol/L (3.5-5.0) 02/23/18 06:31 Chloride 98 mmol/L (101-111) L 02/23/18 06:31 Carbon Dioxide 28 mmol/L (22-32) 02/23/18 06:31 Anion Gap 7 mmol/L (2-11) 02/23/18 06:31 BUN 18 mg/dL (6-24) 02/23/18 06:31 Creatinine 0.95 mg/dL (0.67-1.17) 02/23/18 06:31 Est GFR ( Amer) 94.3 (>60) 02/23/18 06:31 Est GFR (Non-Af Amer) 77.9 (>60) 02/23/18 06:31 BUN/Creatinine Ratio 18.9 (8-20) 02/23/18 06:31 Glucose 156 mg/dL (70-100) H 02/23/18 06:31 Calcium 8.5 mg/dL (8.6-10.3) L 02/23/18 06:31
[2018-02-23] MEDS: Enoxaparin(*) 40 MG/0.4 ML SYR SUBCUT SCH (11:57)
[2018-02-23] MEDS ORDERED: Warfarin TAB(*) 6 MG PO SCH (17:00)
--- NOTE | 2018-02-24 02:19 | OP ---
DATE OF OPERATION: 02/22/18 - ROOM #343 DATE OF : 47 ATTENDING SURGEON: Rosio Adamson MD PRIMER SUPERVISOR: JONNA Mcdermott. Ms. Escalona did help throughout the procedure with preparation of the leg, wound retraction, manipulation of the hip, and wound closure. ANESTHESIOLOGIST: Dr. Silva. ANESTHESIA: Spinal. PRE-OP DIAGNOSIS: Severe end-stage degenerative osteoarthritis of the left hip joint. POST-OP DIAGNOSIS: Severe end-stage degenerative osteoarthritis of the left hip joint. OPERATIVE PROCEDURE: Left total hip arthroplasty. COMPLICATIONS: None. ESTIMATED BLOOD LOSS: 350 cc. SPECIMENS: Femoral head and acetabular reaming sent to pathology. HARDWARE USED: This is uncemented [employer] total hip arthroplasty hardware. For the cup, a Tritanium cluster hole shell 58F, a single 25-mm screw was used. For the liner a Trident X3 0-degree polyethylene insert 40F. For the stem, an Accolade TMZF size 6 with a 127-degree neck angle. For the head, a Biolox delta ceramic V40, 40+4. BRIEF HISTORY/INDICATIONS: Mr. Gallardo is a 73-year-old gentleman with years of increasingly severe left hip pain. Recently, the pain became excruciating. He failed conservative treatment with antiinflammatories, pain medication, intraarticular injection, and physical therapy. Radiographs showed advanced arthritis. Due to continued pain and failure of conservative treatment, he elected to undergo a left total hip arthroplasty. Informed consent was obtained from the patient. He understood the risks of surgery included, but were not limited to bleeding, infection, damage to nearby structures, continued pain, need for further surgery, intraoperative fractures, nerve palsy, hardware failure or loosening, dislocation, left length discrepancy, stroke, heart attack , blood clot, and . He wished to proceed. INTRAOPERATIVE FINDINGS: Intraoperatively, the patient was noted to have severe end-stage arthritis with complete loss of cartilage in the acetabulum and femoral head. He had a large amount of tearing and degeneration of the labrum. DESCRIPTION OF PROCEDURE: Mr. Gallardo was identified in the preanesthesia unit. His left lower extremity was marked as the correct operative site. Informed consent was signed and placed in the chart. The patient was taken to the operating room and placed under spinal anesthesia. A Casanova catheter was placed. The patient was placed in a right lateral decubitus position on the peg board and all bony prominences were well padded. Left lower extremity was prepped and draped in the usual sterile fashion. Preop time-out was made to correctly identify the patient side and site. Appropriate perioperative antibiotics were given within 1 hour of incision. A standard posterior hip incision was made with a 10 blade and carried down to the lateral fascial layer. Lateral facial layer was incised in line with the skin incision. Charnley retractor was placed. The piriformis and conjoint tendons were elevated off the posterolateral femur with electrocautery and tagged with #5 Ethibond. Electrocautery was then used to make a standard posterolateral capsular flap and this was also tagged with #5 Ethibond. The hip was carefully dislocated. Lesser troch to the center of the femoral head measured 65 mm. Oscillating saw was used to make the appropriate femoral neck cut. The femoral head was carefully removed and sent to pathology. The femur was retracted anteriorly. After appropriate placement of retractor, the acetabulum was easily visualized. The acetabulum was sequentially reamed up to a size 57. Subchondral bone bed was obtained. 57 trial had good fit with appropriate anteversion and abduction angle. Final implant chosen was a Tritanium cluster hole shell 58F. This was impacted into the acetabulum without difficulty. Excellent stability was obtained. A single 25-mm cancellous bone screw was placed in the superior posterior quadrant for extra stability. A Trident X3 0-degree 40F liner was placed and checked for stability. The insert was stable. Next, attention was turned to preparation of the proximal femur. A canal finder was used to enter the proximal femur. The femoral canal was sequentially broached up to a size 6. Size 6 broach had good fit and appropriate anteversion. A 127 neck trial and a 40 +4 head trial were placed. Lesser troch to the center of the femoral head measured at approximately 60 mm. Therefore, a +4 head was chosen, this measured 64 mm. The hip was reduced and taken through range of motion. The hip was stable in all positions. There was good soft tissue tension and appropriate leg lengths. The hip was carefully dislocated. All trials were removed. Final implant chosen was an Accolade TMZF size 6 with a 127 degree neck. This was impacted into the femoral canal without difficulty. There was excellent stability and good anteversion. A Biolox delta ceramic V40 femoral head size 40 with a +4 adapter sleeve was chosen and this was impacted onto the femoral neck. Lesser troch to the center of the femoral head measured 66 mm. The hip was reduced and taken through a range of motion. The hip was stable in all positions. Soft tissue tension and leg lengths were deemed to be appropriate. The hip was copiously irrigated with sterile saline. Previously tagged capsule and tendons were reapproximated to the posterolateral femur through 2 trochanteric drill holes. The lateral fascial layer was closed using interrupted #1 Vicryl. The rest of the incision was closed in a layered fashion using 0 and 2-0 Vicryl. Skin was closed using running 3-0 Monocryl and Dermabond. Sterile Adaptic, 4x4s, and paper tape were used to cover the incision. The patients's anesthesia was reversed without difficulty. He was taken to the PACU in stable condition. Intended weightbearing will be weightbearing as tolerated with posterior hip precautions. Intended DVT prophylaxis will be Coumadin with a Lovenox bridge. [id number]/[facility] #: [id number] [facility]ENTERNupur
[2018-02-24 06:12] LABS: Hematocrit 34 % (42-52); Hemoglobin 12.1 g/dl (14.0-18.0); Mean Platelet Volume 8.5 um3 (7.4-10.4); Platelet Count 132 10^3/ul (150-450)
[2018-02-24 06:16] LABS: INR 1.74 (0.77-1.02)
[2018-02-24] MEDS: Acetaminophen TAB* 325 MG PO SCH (06:16)
--- NOTE | 2018-02-24 07:23 | PN ---
Progress Note - Progress Note Date of Service: 02/24/18 SOAP: Subjective: OOB to chair, pain well controlled with current pain regimen Objective: Vital Signs Temp Pulse Resp BP Pulse Ox 99.1 F 61 20 125/66 95 02/23/18 23:52 02/23/18 23:52 02/23/18 23:52 02/23/18 23:52 02/24/18 00:00 Laboratory Last Values Hgb 12.1 g/dl (14.0-18.0) L 02/24/18 05:34 Hct 34 % (42-52) L 02/24/18 05:34 Plt Count 132 10^3/ul (150-450) L 02/24/18 05:34 MPV 8.5 um3 (7.4-10.4) 02/24/18 05:34 INR (Anticoag Therapy) 1.74 (0.77-1.02) H 02/24/18 05:34 Sodium 133 mmol/L (135-145) L 02/23/18 06:31 Potassium 4.5 mmol/L (3.5-5.0) 02/23/18 06:31 Chloride 98 mmol/L (101-111) L 02/23/18 06:31 Carbon Dioxide 28 mmol/L (22-32) 02/23/18 06:31 Anion Gap 7 mmol/L (2-11) 02/23/18 06:31 BUN 18 mg/dL (6-24) 02/23/18 06:31 Creatinine 0.95 mg/dL (0.67-1.17) 02/23/18 06:31 Est GFR ( Amer) 94.3 (>60) 02/23/18 06:31 Est GFR (Non-Af Amer) 77.9 (>60) 02/23/18 06:31 BUN/Creatinine Ratio 18.9 (8-20) 02/23/18 06:31 Glucose 156 mg/dL (70-100) H 02/23/18 06:31 Calcium 8.5 mg/dL (8.6-10.3) L 02/23/18 06:31 incision: c/d; dressing changed PE: NVI Assessment: s/p left LAISHA ( POD#2) Plan: 1) PT/OT-WBAT 2) Lovenox/Coumadin for DVT prophylaxis 3) Home today; follow-up with Juan Diego in 2 weeks
[2018-02-24] MEDS: Docusate CAP* 100 MG PO SCH (08:45)
[2018-02-24] MEDS: Magnesium Hydroxide LIQ* 30 ML UDC PO SCH (08:45)
[2018-02-24] MEDS: Carvedilol TAB* 25 MG PO SCH (08:51)
[2018-02-24] MEDS: amLODIPine TAB* 5 MG PO SCH (08:51)
[2018-02-24] MEDS ORDERED: Furosemide TAB* 20 MG PO SCH (09:00)
[2018-02-24] MEDS: Enoxaparin(*) 40 MG/0.4 ML SYR SUBCUT SCH (10:59)
[2018-02-24 11:34] VITALS: BP 104/56
--- NOTE | 2018-02-24 17:33 | DS ---
DISCHARGE SUMMARY: DATE OF ADMISSION: 02/22/18 DATE OF DISCHARGE: 02/24/18 PROVIDER: Dr. Rosio Adamson.* (DICTATED BY JONNA SLOIS) PODIATRY DOCTOR: JONNA Mcdermott. PRE-OP DIAGNOSIS: Severe end-stage degenerative osteoarthritis of the left hip joint. OPERATIVE PROCEDURE: Left total hip arthroplasty. HISTORY: Mr. Gallardo is a 74-year-old male with years of increasingly severe left hip pain. He failed conservative management and elected to undergo a left total hip arthroplasty. HOSPITAL COURSE: The patient was admitted to [facility] on . He underwent a left total hip arthroplasty without complications. He recovered briefly in the PACU and then was transferred to the short-stay surgical unit in stable condition. He was followed by hospitalist service during his stay. There were no changes to his medications while he was in- house. Postop day 1, he was well-appearing, in no acute distress. Left hip dressing clean, dry, and intact without any surrounding erythema. Thigh was soft. Dorsiflexion and plantarflexion intact. DP pulse 2+. Sensation intact distally. Postop day 2, dressing was changed and the incision was clean, dry, and intact. He was neurovascularly intact. Hemoglobin 12.1, hematocrit 34, INR 1.74. Vital Signs: Temp 99.1, pulse 61, respiratory rate 20, blood pressure 125/66, pulse ox 95. The patient was deemed to be medically and orthopedically stable for discharge home. DISCHARGE MEDICATIONS: At home, the patient will resume: 1. Vitamin B12 1000 mcg daily. 2. Atacand 32 mg p.o. q.a.m. 3. Furosemide 20 mg p.o. every other day. 4. Aspirin 81 mg p.o. q.a.m. 5. Carvedilol 25 mg p.o. b.i.d. 6. Amlodipine 5 mg p.o. q.a.m. 7. Amoxicillin 500 mg p.o. once p.r.n. 8. Vitamin D 5000 units p.o. q.a.m. 9. Discontinue ibuprofen at home. New medications: 1. Acetaminophen 975 mg p.o. q.8 hours p.r.n. 2. Docusate 100 mg p.o. b.i.d. 3. Percocet 5/325 one to two tabs every 4 to 6 hours p.r.n., max daily dose of 10. 4. Warfarin 2 mg tabs. Please take between 0 and 5 tabs daily depending on INR dosing. DISCHARGE PLAN: The patient will be weightbearing as tolerated. He will continue hip precautions. He will continue physical therapy and occupational therapy exercises at home. Visiting home nurse will do wound checks and INR blood draws on Mondays and . Coumadin dosing 6 mg, Wednesday 4 mg, Wednesday 4 mg, and Wednesday 4 mg and Wednesday INR will be rechecked for dosing instructions. Percocet 5/325 one to two tabs daily every 4 to 6 hours, max of 10 per day for pain control. The patient will follow up with Dr. Adamson in 10 to 14 days. JONNA SOLIS [id number]/[facility] #: [id number] [facility]
== END 2018-02-24 11:35 | disposition home health service (06) | DRG 470 ==
LOC: AA 12:39 → SSU 20:15
PROVIDERS: ADMIT Orthopaedic Surgery Adult Reconstructive Orthopaedic Surgery; ATTEND Orthopaedic Surgery Adult Reconstructive Orthopaedic Surgery
PROC: 0SRB04A Replacement of Left Hip Joint with Ceramic on Polyethylene Synthetic Substitute, Uncemented, Open Approach (ICD-10-PCS; principal; 2018-02-22 15:00)
DX: M16.12 Unilateral primary osteoarthritis, left hip (principal); I50.22 Chronic systolic (congestive) heart failure; I42.8 Other cardiomyopathies; G47.33 Obstructive sleep apnea (adult) (pediatric); E78.2 Mixed hyperlipidemia; Z96.611 Presence of right artificial shoulder joint; H91.93 Unspecified hearing loss, bilateral; E78.00 Pure hypercholesterolemia, unspecified; G56.02 Carpal tunnel syndrome, left upper limb; I11.0 Hypertensive heart disease with heart failure; E66.01 Morbid (severe) obesity due to excess calories; I44.7 Left bundle-branch block, unspecified; E53.8 Deficiency of other specified B group vitamins; Z79.82 Long term (current) use of aspirin; Z79.01 Long term (current) use of anticoagulants; Z95.810 Presence of automatic (implantable) cardiac defibrillator; Z98.42 Cataract extraction status, left eye; Z83.3 Family history of diabetes mellitus; Z82.49 Family history of ischemic heart disease and other diseases of the circulatory system; Z72.89 Other problems related to lifestyle; Z87.891 Personal history of nicotine dependence; Z83.49 Family history of other endocrine, nutritional and metabolic diseases; Z68.34 Body mass index [BMI] 34.0-34.9, adult; Z86.010 Personal history of colon polyps; Z80.0 Family history of malignant neoplasm of digestive organs; Z81.8 Family history of other mental and behavioral disorders
CPT/HCPCS: 36415; 80048; 85014; 85018; 85049; 85610; 88304; 88311; A9270-GY; C1713; C1776; G8978-GP-CI; G8978-GP-CJ; G8979-GP-CI; G8980-GP-CI; G8987-GO-CJ; G8988-GO-CI; J0360; J0690; J1200; J1650; J2250; J2270; J3010

== ENCOUNTER 2019-01-22 11:08 | Emergency (ER) | payer MEDICARE, BC ==
[2019-01-22 11:17] VITALS: BP 173/99
--- NOTE | 2019-01-22 11:30 | UC ---
Hip/Pelvis Pain - HPI Summary HPI Summary: Patient is a 73 year old gentleman, who present today to the urgent care with right groin pain for past 1 week. He reports that he started noticing right lateral hip and groin pain on 01/15/19 after driving his camper for about 3-1/2 hours. Denies any trauma. Does have some low back pain and pain radiates down to the mid thigh. Denies any numbness or tingling, incontinence or saddle anesthesia. He has history of left hip osteoarthritis status post replacement last year and he reports that he feels similar. He took ibuprofen without much relief last dose was today morning He denies any fevers, chills or any other symptoms - History Of Current Complaint Chief Complaint: UCLowerExtremity Stated Complaint: HIP AND GROIN PAIN Time Seen by Provider: 01/22/19 11:20 Hx Obtained From: Patient Pain Intensity: 10 - Allergies/Home Medications Allergies/Adverse Reactions: Allergies Allergy/AdvReac Type Severity Reaction Status Date / Time No Known Allergies Allergy Verified 01/22/19 11:17 Home Medications: Home Medications Ibuprofen TAB* [Motrin TAB* 600 MG] 600 mg PO ONCE PRN 01/22/19 [History Confirmed 01/22/19] PMH/Surg Hx/FS Hx/Imm Hx - Additional Past Medical History Additional PMH: Past Medical History : Cardiac arrhythmia status post defibrillator and ICD placement, heart failure, cardiomyopathy, hypertension Past Surgical History: Appendectomy, herniated disc surgery, right shoulder replacement 2016 Family History : Noncontributory Social History : Daily alcohol, former smoker, no drug use. Previously Healthy: Yes - Surgical History Surgical History: Yes Surgery Procedure, Year, and Place: 1957 APPENDECTOMY. 1998 HERNITALED DISK LUMBAR, [facility]. 09/2015 ICD IMPLANT DORIAN. right shoulder replacement 2016. umbilical hernia repair 2012. LEFT CARDIAC CATHERIZATION 2014. adnoidectomy 13 years old. Left Total Hip Replacement - Social History Alcohol Use: Daily Alcohol Amount: 1-2 DRINKS/DAY Substance Use Type: None Smoking Status (MU): Former Smoker Amount Used/How Often: 1PPD 25YRS Have You Smoked in the Last Year: No When Did the Patient Quit Smoking/Using Tobacco: 1980s - Immunization History Most Recent Influenza Vaccination: FALL 2015 Most Recent Tetanus Shot: UNKNOWN Most Recent Pneumonia Vaccination: 2014 Review of Systems All Other Systems Reviewed And Are Negative: Yes Constitutional: Positive: Negative Skin: Positive: Negative Eyes: Positive: Negative ENT: Positive: Negative Respiratory: Positive: Negative Cardiovascular: Positive: Negative Gastrointestinal: Positive: Negative Genitourinary: Positive: Negative Motor: Positive: Negative Neurovascular: Positive: Negative Musculoskeletal: Positive: Arthralgia - Right hip, Decreased ROM - Right hip with pain Neurological: Positive: Negative Psychological: Positive: Negative Is Patient Immunocompromised?: No Physical Exam - Summary Physical Exam Summary: Vital Signs Reviewed: Yes A+Ox3, no distress Eyes: Conjunctiva Clear ENT: Hearing grossly normal neck: supple Respiratory: Positive: No respiratory distress, No accessory muscle use Cardiovascular: skin color reflect adequate perfusion Neurological: Positive: Alert, ambulatory without difficulty Psychological: Positive: Normal Response To Family Skin: Positive: no rash, no ecchymosis Hip/ Spine: Spine: No loss of the normal lumbar lordosis or step-off. No midline or paraspinal tenderness spine noted. There is no tenderness of the costovertebral angle bilaterally. Stability: No obvious instability. Strength: Flexion, extension, left rotation, left lateral bending, right lateral bending and right rotation strength is intact. ROM: Slightly limited range of motion and painful Special Tests: Straight leg raise is negative bilaterally. Right Hip: Insp/Palp: Normal to inspection and palpation. Strength: 5/5 bilaterally. Normal muscle tone bilaterally. ROM: Significantly limited range of motion which is painful, internal rotation is limited to neutral Skin: No scars, rashes, lesions or ecchymosis. Neuro: Sensation intact to light touch. Motor and sensory intact. Reflexes: Left DTR's are intact. Right DTR's are intact. Toes downgoing. Coordination normal. Distal pulses intact. Triage Information Reviewed: Yes Vital Signs: Initial Vital Signs Temp 97.6 F 01/22/19 11:12 Pulse 72 01/22/19 11:12 Resp 24 01/22/19 11:12 BP 173/99 01/22/19 11:12 Pulse Ox 97 01/22/19 11:12 Vital Signs Reviewed: Yes Diagnostics - Radiology No standard instances Radiology Interpretation Completed By: Radiologist - X-ray of right hip and AP pelvis:Moderately severe osteoarthritis of the RIGHT hip without significant change compared with the April 11, 2018 exam. Hip Injury Course/Dx - Course Course Of Treatment: During the visit today, we obtained x-rays of right hip and AP pelvis: Moderately severe osteoarthritis of the RIGHT hip without significant change compared with the April 11, 2018 exam. Symptoms consistent with right hip joint osteoarthritis flare. He was given 1 dose of Vicodin for pain. We discussed the findings and further plan to follow up with orthopedics. He has seen Dr. Adamson for replacement of his left hip last year and will prefer to follow up with her. I will prescribe Vicodin for pain control along with a course of Medrol Dosepak to reduce inflammation. Patient expressed understanding . - Differential Dx/Diagnosis Provider Diagnosis: Osteoarthritis of right hip Discharge - Sign-Out/Discharge Documenting (check all that apply): Patient Departure All imaging exams completed and their final reports reviewed: Yes - Discharge Plan Condition: Stable Disposition: HOME Prescriptions: Hydrocodone/Acetaminophen [Vicodin 5-300 mg Tablet] 1 each PO BID PRN 7 Days # 14 tablet MDD 2 PRN Reason: Pain methylPREDNISolone [Medrol Dosepak 4 MG*] 4 mg PO .SEE LOUISE INSTRUCTION 6 Days # 1 louise Patient Education Materials: Osteoarthritis (ED) Referrals: Dwight De Leon MD [Primary Care Provider] - Rosio Adamson MD [Medical Doctor] - 1 Week Additional Instructions: Please start taking the medication as prescribed to the pharmacy . Follow up with orthopedics within a week. Patients blood pressure is high in Urgent care today , plan follow up with PCP for better control Return to Urgent care / ER if symptoms get worse. - Billing Disposition and Condition Condition: STABLE Disposition: Home
[2019-01-22] MEDS ORDERED: HYDROcodone/ACETAMIN 5-325 MG* 1 TAB PO ONE (11:43)
== END 2019-01-22 12:20 | disposition home or self-care (01) ==
LOC: UCEAST 11:08
DX: M16.11 Unilateral primary osteoarthritis, right hip (principal); R10.9 Unspecified abdominal pain; Z87.891 Personal history of nicotine dependence; I10 Essential (primary) hypertension
CPT/HCPCS: 99212; G0463

== ENCOUNTER 2019-03-16 10:07 | Inpatient (IN) | payer MEDICARE, BC ==
[~2019-03-16 10:07] MED LIST changes: -Buffered Lidocaine 0.9% SYRIN* 5 ML/SYR SYRINGE INTRADERM ONE; +Buffered Lidocaine 1% SYRIN* 1 ML/SYRINGE INTRADERM ONE; +Dexamethasone IV* 4 MG/ML 1 ML (4 MG) IV SLOW PU ONE; +Famotidine IV* 10 MG/ML 2 ML (20 mg) IV ONE; +Lactated Ringers 1000 ML Bag* 1,000 ML IV SCH; +fentaNYL* 50 MCG/ML 2 ML VIAL (100 MCG VIAL) ONE
[2019-03-16] MEDS ORDERED: ROPIVACAINE 5 MG/ML 30 ML BTL (0.5%) ONE ×2 (12:17→12:36)
[2019-03-16] MEDS ORDERED: Midazolam* 1 MG/ML 2 ML VIAL (2 MG) ONE (12:20)
[2019-03-16] MEDS ORDERED: Bupivacaine 0.5% SDV PF* 30ML VIAL ONE (12:22)
[2019-03-16] MEDS ORDERED: Propofol* 10 MG/ML 20 ML BTL ONE ×4 (12:50→14:48)
[2019-03-16] MEDS ORDERED: EPHEDrine (Pressors)* 50 MG/ML VIAL ONE (14:15)
[2019-03-16] MEDS ORDERED: HYDROmorphone INJ1* 1 MG/ML SYRINGE IV PRN (14:27)
[2019-03-16] MEDS ORDERED: Naloxone* 0.4 MG/ML 1 ML VIAL IV PRN (14:27)
[2019-03-16] MEDS ORDERED: Ondansetron ODT TAB* 4 MG PO PRN ×2 (14:27→15:25)
[2019-03-16] MEDS ORDERED: traMADol TAB* 50 MG PO PRN (15:25)
[2019-03-16] MEDS ORDERED: Cyclobenzaprine TAB* 10 MG PO PRN (15:25)
[2019-03-16] MEDS ORDERED: Bisacodyl SUPP* 10 MG SUPP PR PRN (15:25)
[2019-03-16] MEDS ORDERED: Temazepam CAP* 15 MG PO PRN (15:25)
[2019-03-16] MEDS ORDERED: Magnesium Hydroxide LIQ* 30 ML UDC PO PRN (15:25)
[2019-03-16] MEDS ORDERED: Ondansetron INJ* 2 MG/ML VIAL IV PRN (15:25)
[2019-03-16] MEDS ORDERED: diPHENhydraMINE PO* 25 MG PO PRN (15:25)
[2019-03-16] MEDS ORDERED: oxyCODONE/Acetamin 5/325 MG* TAB PO PRN (15:25)
[2019-03-16] MEDS ORDERED: Morphine INJ* 2 MG/ML 1 ML SYRINGE (TWO MG - NEW SYRINGE VERSION) IV PRN (15:25)
[2019-03-16] MEDS ORDERED: Polyethylene Glycol 3350* 17 GM PACKET PO PRN (15:25)
[2019-03-16] MEDS ORDERED: diPHENhydraMINE IV* 50 MG/ML 1 ml VIAL (BENADRYL) IV PRN (15:25)
[2019-03-16] MEDS ORDERED: oxyCODONE TAB* 5 MG TAB PO PRN (15:25)
[2019-03-16] MEDS ORDERED: Furosemide TAB* 20 MG PO SCH ×2 (16:00→17:30)
[2019-03-16] MEDS: Lactated Ringers 1000 ML Bag* 1,000 ML IV SCH (17:04)
--- NOTE | 2019-03-16 17:34 | CONS ---
CC: Dr. De Leon; Dr. Lowe; Dr. Adamson * CONSULTATION REPORT: DATE OF CONSULT: 03/16/19 TIME OF EVALUATION: 4 p.m. PRIMARY CARE PROVIDER: Dr. De Leon. DRY CLIPPER TENDER: Dr. Lowe. REQUESTING PHYSICIAN: Dr. Adamson. REASON FOR CONSULT: Management of comorbidities. HISTORY OF PRESENT ILLNESS: Mr. 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 Adamson. The patient underwent a left total hip replacement with Dr. Adamson in January 2018 and states that he did well after surgery, and due to continuous complaints of pain on the right, he elected to have replacement done on that side too after failing conservative therapy. At the time of my evaluation, he is still recovering from anesthesia and has not recovered sensation on his right lower extremity yet, so he has no complaints of pain at this time. He denies chest pain, palpitation, shortness of breath, nausea, vomiting, or any other complaints. PAST MEDICAL HISTORY: 1. Carpal tunnel syndrome. 2. Obstructive sleep apnea, on CPAP at home. 3. Nonischemic cardiomyopathy secondary to left bundle-branch block, status post ICD placement with recovery of his ejection fraction. 4. Hypertension. 5. Hyperlipidemia. 6. Pernicious anemia. 7. Osteoarthritis. 8. Obesity with BMI of 33. MEDICATIONS: 1. Amlodipine 5 mg p.o. daily. 2. Amoxicillin 2000 mg once prior to dental work. 3. Aspirin 81 mg p.o. daily. 4. Candesartan 32 mg p.o. daily. 5. Carvedilol 25 mg p.o. b.i.d. 6. Cholecalciferol 4000 units p.o. q.a.m. 7. Vitamin B12 1000 mcg intramuscular monthly. 8. Furosemide 20 mg p.o. on Tuesdays and . 9. Magnesium oxide 400 mg p.o. b.i.d. 10. Naproxen 220 mg p.o. as needed for pain. 11. Tamsulosin 0.4 mg p.o. at bedtime. ALLERGIES: No known drug allergies. FAMILY HISTORY: His father had a history of hyperlipidemia, hypertension, and passed at age 52 of a brain aneurysm. His mother had a history of type 2 diabetes and colon cancer and also dementia. SOCIAL HISTORY: He smoked 1 pack per day for 20 years, quit in 1992. He drinks wine or [place] daily. No drug use. Surrogate decision maker is his Dionna Gallardo, phone number is [phone]. REVIEW OF SYSTEMS: A 14-point review of systems was performed and all the pertinent negative and positive findings are in the HPI. PHYSICAL EXAM: Vital Signs: Temperature 96.8, heart rate is 60, respiratory rate is 16, oxygen saturation 96% on room air, blood pressure is 116/77. General: The patient is a pleasant, obese, elderly gentleman, lying in bed, in no acute distress. HEENT: Pupils are equal. Moist mucous membranes. CVS: Normal S1, S2. Regular rate and rhythm. Chest: Breath sounds present bilaterally with no added sounds. Abdomen is obese. Bowel sounds are present. Extremities: No edema. The patient has partial sensation on his left lower extremity and sensation has not returned to his right lower extremity yet as well as movement. Neuro: He is alert and oriented x3. Able to move upper extremities and left lower extremity. ASSESSMENT AND PLAN: Mr. Gallardo is a 74-year-old male with a past medical history of obstructive sleep apnea, on CPAP; nonischemic cardiomyopathy secondary to left bundle-branch block, status post ICD with improvement of ejection fraction; hypertension; hyperlipidemia; pernicious anemia; status post left total hip replacement, who presents for an elective right total hip arthroplasty. 1. Right total hip arthroplasty. Management as per Orthopedics. 2. Nonischemic cardiomyopathy. Cardiology input is appreciated. The patient was seen in consultation by Dr. Lowe prior to his surgery. We will continue his SHAW inhibitor, carvedilol, furosemide with holding parameters. 3. Obstructive sleep apnea. The patient will have CPAP overnight and we will monitor his oxygen saturation. 4. Hypertension. The patient will be continued on his cardiomyopathy medications including SHAW inhibitor and beta-cecilio as described above, and we will continue his amlodipine, but they will all have holding parameters as his blood pressure is on the softer side at this time. 5. DVT prophylaxis will be with apixaban as per Orthopedics' decision. 6. Code status is full. TIME SPENT: Approximately 45 minutes was spent with the patient and family interview ( and daughter), medical records review, physical examination to complete this consultation, more than half of this time was spent [id number] with the patient and coordination of care. [id number]/[facility] #: [id number] DARLENE
[2019-03-16] MEDS ORDERED: Tamsulosin CAP* 0.4 MG PO SCH (18:00)
[2019-03-16] MEDS: Acetaminophen TAB* 325 MG PO SCH (18:04)
[2019-03-16] MEDS: ceFAZolin 1 GM ADVAN(*) 1 GM in NS 0.9% 50 ML* 50 ML IVPB SCH (20:47)
[2019-03-16] MEDS: Docusate CAP* 100 MG PO SCH (20:47)
[2019-03-16] MEDS: Magnesium Hydroxide LIQ* 30 ML UDC PO SCH (20:47)
[2019-03-16] MEDS: Magnesium Oxide TAB* 400 MG PO SCH (20:48)
[2019-03-16] MEDS: Carvedilol TAB* 25 MG PO SCH (20:48)
[2019-03-16] MEDS ORDERED: Carvedilol TAB* 25 MG PO SCH (21:00)
--- NOTE | 2019-03-16 22:52 | OP ---
Operative Report - Blank - Operative Report Date of Operation: 03/16/19 Note: KANE BRANTLEY 1945 Date Of Surgery: 03/16/19 Rosio Adamson MD Bottom Pounder Cement Shoes: Marco Antonio COYLE did help throughout the procedure with preparation of the hip, wound retraction, manipulation of the hip, and wound closure. Anesthesiologist: Bonilla Styles MD Anesthesia Type: Spinal Preoperative Diagnosis: Right severe degenerative osteoarthritis of the hip Postoperative Diagnosis: As above Procedure Performed: Right Total Hip Arthroplasty Complications: None Specimen: Femoral head and acetabular reamings sent to pathology. Hardware used: This is uncemented Carlos total hip arthroplasty hardware for the femur a size 8 accolade II with 127 degree neck femoral component, for the acetabulum a size 60G trident II tritanium cluster hole shell, a single 20 mm screw, for the insert a size 44G trident x3 polyethylene insert, and for the femoral head a size 44 + 4 ceramic biolox V40 femoral head. Brief history/Indication: KANE BRANTLEY was known in clinic and had a history of severe right hip pain. He failed conservative treatment with anti- inflammatories, pain pills, intra-articular injections and physical therapy. He elected to undergo right total hip arthroplasty due to continued pain and decreased quality of life. Radiographs showed severe end stage osteoarthritis of the hip with bone on bone contact. Informed consent was obtained from the patient. He understood the risks of surgery included but were not limited to: bleeding, infection, damage to nearby structures, intraoperative fracture, nerve palsy, failure of the hardware, early loosening, stiffness or loss of motion, dislocation, leg length discrepancy, anesthesia complications, stroke, heart attack, blood clot and . He wished to proceed. Intra-Operative findings: Intraoperatively the patient was noted to have severe loss of cartilage of the acetabulum and femoral head. Description of the Procedure: KANE BRANTLEY was identified in the preanesthesia unit. His right hip was marked as the correct operative side. Informed consent was signed and placed in the chart. The patient was taken to the operating room and placed under anesthesia without complication. A mcfarlane catheter was placed. The patient was placed on the peg board with all bony prominences well padded. The right lower extremity was prepped and draped in the usual sterile fashion. Preoperative time -out was made to correctly identify the patient, side and site. Appropriate intraoperative antibiotics were given within one hour of incision. A standard posterior incision was made and carried sharply down to the lateral fascia. A new 10 blade was used to make an incision in the fascia in line with the skin incision. A charnley retractor was placed. The piriformis and conjoined tendons were identified and elevated off the posterolateral femur using electrocautery. These were tagged with number 5 Ethibond. Next electrocautery was used to make a posterolateral capsular flap and this was tagged with number 5 Ethibonds. The hip was carefully dislocated. Lesser trochanter to the center of the femoral head was measured at 70 mm. The oscillating saw was used to make the femoral neck cut. The femoral head was carefully removed. The femur was retracted anteriorly and the acetabular retractors were placed. Long-handled knife was used to sharply remove any remaining labrum from the acetabular rim. The acetabulum was sequentially reamed up to a size 60. A bleeding subchondral bone bed was obtained. A trial liner was placed and had excellent fit and stability. A 60G trident II tritanium cup with a 20 mm screw was placed and had excellent stability with appropriate anteversion and abduction angle. A size 44G polyethylene liner was impacted into the acetabular shell. The liner was checked for stability and was stable. Next attention was turned to preparation of the femoral canal. A canal finder was used to enter the proximal femur. The femoral canal was sequentially broached up to a size 8 femoral broach trial. A trial neck and 44 + 4 trial femoral head was chosen. Lesser trochanter to center of the femoral head measurement was satisfactory. The hip was reduced and taken through a range of motion. The hip was stable in all positions with good soft tissue tension and appropriate leg lengths. The hip was dislocated and all trials were removed. The final implant chosen was a accolade II size 8 with 127 degree neck angle. This stem was impacted into the femoral canal without difficulty. The stem was stable with appropriate anteversion. The femoral head chosen was a 44 + 4 ceramic head with appropriate sleeve. The head was impacted onto the femoral neck without difficulty. The final lesser trochanter to center of the femoral head measurement was satisfactory. The hip was reduced and taken through a range of motion. The hip was stable in all positions with good soft tissue tension and appropriate leg lengths. The hip was copiously irrigated with sterile saline. The previously tagged capsule and tendons were repaired to the posterolateral femur through two trochanteric drill holes. The lateral fascia layer was closed using number 1 vicryls. The rest of the incision was closed in a layered fashion using 0 and 2-0 vicryls. The skin was closed using 3-0 monocryl suture and Dermabond. Sterile adaptic, 4x4s and paper tape was used to cover the incision. The patients anesthesia was reversed without difficulty. He was taken to the PACU in stable condition. Intended weight-bearing will be as tolerated with posterior hip precautions.
[2019-03-17] MEDS: Acetaminophen TAB* 325 MG PO SCH ×2 (01:52→09:54)
[2019-03-17] MEDS: Lactated Ringers 1000 ML Bag* 1,000 ML IV SCH (04:12)
[2019-03-17] MEDS: ceFAZolin 1 GM ADVAN(*) 1 GM in NS 0.9% 50 ML* 50 ML IVPB SCH ×2 (04:28→12:46)
[2019-03-17 06:01] LABS: Hematocrit 38 % (42-52); Hemoglobin 13.5 g/dL (14.0-18.0); Mean Platelet Volume 8.4 fL (7.4-10.4); Platelet Count 151 10^3/uL (150-450)
[2019-03-17 06:21] LABS: BUN/Creatinine Ratio 19.3 (8-20); Calcium 8.8 mg/dL (8.6-10.3); EGFR African American 109.9 (>60); EGFR Non-African American 90.8 (>60); Potassium 4.3 mmol/L (3.5-5.0)
[2019-03-17] MEDS: oxyCODONE/Acetamin 5/325 MG* TAB PO PRN ×2 (08:15→12:45)
[2019-03-17] MEDS: Magnesium Hydroxide LIQ* 30 ML UDC PO SCH (08:15)
[2019-03-17] MEDS: Carvedilol TAB* 25 MG PO SCH (08:16)
[2019-03-17] MEDS: Docusate CAP* 100 MG PO SCH (08:16)
[2019-03-17] MEDS: Magnesium Oxide TAB* 400 MG PO SCH (08:17)
[2019-03-17] MEDS ORDERED: CANDESARTAN CILEXETIL 32 MG PO SCH (09:00)
[2019-03-17] MEDS ORDERED: Valsartan TAB* 160 MG PO SCH (09:00)
[2019-03-17] MEDS ORDERED: Apixaban* 2.5 MG TAB PO SCH (09:00)
[2019-03-17] MEDS ORDERED: amLODIPine TAB* 5 MG PO SCH ×2 (09:00)
--- NOTE | 2019-03-17 11:20 | DS ---
Orthopedic Discharge Summary - Discharge Summary Date of Admission:03/16/19 Date of Discharge: 03/17/19 Date of Surgery: 03/16/19 Attending Orthopedic Provider: Dr. Adamson Pre-operative Diagnosis: Degenerative arthritis right hip Operative Procedure: Right total hip arthroplasty Disposition of Patient: home Condition of Patient: stable History: KANE BRANTLEY is a 74 year old M with years of increasingly severe right hip pain. Patient has failed conservative management and has elected to undergo a right total hip replacement Hospital Course: KANE was admitted to [facility] on 03/16/19. Patient underwent a right total hip replacement without complication followed by a brief recovery in PACU and transfer to the Short Stay Surgical Unit in stable condition. Our hospitalist service, physical therapy and occupational therapy also participated in this patients care. Post-op day 1: patient was alert and in no acute distress. Dressing was clean, dry and intact. Operative extremity dorsiflexion and plantarflexion intact, sensation intact to light touch distally, DP2+. His dressing was changed, incision was clean, dry and intact. Patient was deemed to be medically and orthopedically stable for discharge. Physical therapy goals were met. Home Medications Medication Instructions Recorded Confirmed Type Cyanocobalamin INJ * [Vitamin B12 1,000 mcg IM MONTHLY 04/30/15 03/16/19 History INJ *] Carvedilol TAB* [Coreg TAB*] 25 mg PO BID 08/26/16 03/16/19 History Furosemide TAB* [Lasix TAB*] 20 mg PO TUTH 08/26/16 03/16/19 History Amlodipine Besylate [Norvasc 5 mg 5 mg PO QAM 09/09/16 03/16/19 History tab] Cholecalciferol (Vitamin D3) 5,000 unit PO QAM 02/11/18 03/16/19 History [Vitamin D3] Candesartan Cilexetil 32 mg PO QAM 11/07/18 03/16/19 History Amoxicillin PO (*) [Amoxicillin 4 tab PO ONCE PRN 03/06/19 03/16/19 History 500 MG CAP*] Magnesium Oxide TAB* [MagOx 400 400 mg PO BID 03/06/19 03/16/19 History TAB*] Tamsulosin CAP* [Flomax CAP*] 0.4 mg PO QPM 03/06/19 03/16/19 History Apixaban* [Eliquis*] 2.5 mg PO BID #60 tab 03/17/19 Rx Docusate CAP* [Colace Cap*] 100 mg PO BID cap 03/17/19 Rx Discharge Instructions following Orthopedic Surgery: Activity: * Weight Bearing as tolerated * Continue physical therapy and occupational therapy exercises as shown Hip replacements: Continue Hip Precautions- do not cross legs or bend greater than 90 degrees/squat Wound care: * OK to shower on post-op day 3, no bathing, swimming, or submerging wound. * Use gentle soap, pat dry. Cover with gauze, SHAW wrap or tape. * Visiting home nurse to do wound checks. Call Orthopedic office for: * Increased drainage * Redness * Increased pain * Fever Go to ER with shortness of breath or chest pain. Diet: * Regular diet * Increase fluids and fiber to prevent constipation. * Continue to use stool softeners, call office if no bowel motion within 48 hours. Medications See Home Medication List in your packet for medications that you should take after discharge. DVT Prophylaxis: Eliquis Dosin.5 mg, 1 tab every 12 hours x 30 days Pain Control: Has pain medication at home to use as needed Antibiotics are required prior to any dental work. FOLLOW UP: Follow up with Dr. Adamson Within 10-14 days, call for appointment Please call our office with any questions or concerns ([phone])
[2019-03-17 11:37] VITALS: BP 108/55
--- NOTE | 2019-03-17 15:23 | PN ---
Subjective Date of Service: 03/17/19 Interval History: HOSPITALIST PROGRESS NOTE Patient seen and examined at bedside earlier today. Care reviewed and d/w Shelby Blevins RN. He is in good spirits today. Pain is controlled and he knows what to expect since he had his left hip done last year. Voided after Casanova removal and able to ambulate with walker and PT supervision. Family History: Unchanged from Admission Social History: Unchanged from Admission Past Medical History: Unchanged from Admission Objective Active Medications: Acetaminophen (Tylenol Tab*) 975 mg PO Q8H [facility] Last Admin: 03/17/19 09:54 Dose: Not Given Amlodipine Besylate (Norvasc Tab*) 5 mg PO QAM [facility] Last Admin: 03/17/19 08:16 Dose: 5 mg Apixaban (Eliquis*) 2.5 mg PO BID [facility] Last Admin: 03/17/19 08:16 Dose: 2.5 mg Bisacodyl (Dulcolax Supp*) 10 mg NC DAILY PRN PRN Reason: constipation Carvedilol (Coreg Tab*) 25 mg PO BID [facility] Last Admin: 03/17/19 08:16 Dose: 25 mg Cyclobenzaprine HCl (Flexeril Tab*) 10 mg PO TID PRN PRN Reason: SPASMS Last Admin: 03/16/19 20:48 Dose: 10 mg Diphenhydramine HCl (Benadryl Iv*) 25 mg IV Q6H PRN PRN Reason: itching Diphenhydramine HCl (Benadryl Po*) 25 mg PO Q6H PRN PRN Reason: itching Docusate Sodium (Colace Cap*) 100 mg PO BID [facility] Last Admin: 03/17/19 08:16 Dose: 100 mg Furosemide (Lasix Tab*) 20 mg PO TuTh@0900 [facility] Last Admin: 03/16/19 18:04 Dose: 20 mg Lactated Ringer's (Lactated Ringers 1000 Ml Bag*) 1,000 mls @ 100 mls/hr IV PER RATE [facility] Last Admin: 03/17/19 04:12 Dose: 100 mls/hr Lactulose (Lactulose*) 30 ml PO Q6H PRN PRN Reason: constipation Magnesium Hydroxide (Milk Of Magnesia Liq*) 30 ml PO BID [facility] Last Admin: 03/17/19 08:15 Dose: 30 ml Magnesium Hydroxide (Milk Of Magnesia Liq*) 30 ml PO Q6H PRN PRN Reason: constipation Magnesium Oxide (Magox 400 Tab*) 400 mg PO BID [facility] Last Admin: 03/17/19 08:17 Dose: 400 mg Morphine Sulfate (Morphine Inj (Syringe))*) 2 mg IV Q2H PRN PRN Reason: PAIN - SEVERE Ondansetron HCl (Zofran Inj*) 4 mg IV Q6H PRN PRN Reason: nausea Ondansetron HCl (Zofran Odt Tab*) 4 mg PO Q6H PRN PRN Reason: NAUSEA Oxycodone HCl (Roxycodone Tab*) 10 mg PO Q4H PRN PRN Reason: PAIN - MODERATE Last Admin: 03/16/19 19:13 Dose: 10 mg Oxycodone/Acetaminophen (Percocet 5/325 Tab*) 1 tab PO Q4H PRN PRN Reason: PAIN - MILD Last Admin: 03/17/19 12:45 Dose: 1 tab Polyethylene Glycol/Electrolytes (Miralax*) 17 gm PO DAILY PRN PRN Reason: Constipation Tamsulosin HCl (Flomax Cap*) 0.4 mg PO QPM [facility] Last Admin: 03/16/19 18:04 Dose: 0.4 mg Temazepam (Restoril Cap*) 15 mg PO BEDTIME PRN PRN Reason: INSOMNIA Valsartan (Diovan Tab*) 160 mg PO QAM [facility] Last Admin: 03/17/19 08:16 Dose: 160 mg Vital Signs - 8 hr 03/17/19 03/17/19 03/17/19 07:27 08:00 08:15 Temperature 98.0 F Pulse Rate 62 Respiratory 16 16 16 Rate Blood Pressure 125/69 (mmHg) O2 Sat by Pulse 99 97 Oximetry 03/17/19 03/17/19 03/17/19 08:23 11:36 12:45 Temperature 98.2 F Pulse Rate 64 Respiratory 16 16 Rate Blood Pressure 108/55 (mmHg) O2 Sat by Pulse 99 100 Oximetry Oxygen Devices in Use Now: None Appearance: Pleasant elderly gentleman sitting up in bed in NAD. Eyes: No Scleral Icterus Ears/Nose/Mouth/Throat: Mucous Membranes Moist Neck: Trachea Midline Respiratory: Symmetrical Chest Expansion and Respiratory Effort, Clear to Auscultation Cardiovascular: RRR - Normal S1 and S2 Neurological: Alert and Oriented x 3, NL Muscle Strength and Tone Result Diagrams: 03/17/19 05:41 03/17/19 05:41 Assess/Plan/Problems-Billing Assessment: Mr Gallardo is a 74yo M with PMH of FERMIN on CPAP, non ischemic CMP secondary to LBBB s/p ICD placement and recovery of EF, HTN, HLD, admitted for an elective R LAISHA. - Patient Problems (1) History of total right hip arthroplasty Comment: - Management as per Ortho. (2) Non-ischemic cardiomyopathy Comment: - Stable. - Continue beta cecilio and ARB. (3) Obstructive sleep apnea Comment: - Continue CPAP. (4) DVT prophylaxis Comment: - Apixaban as per Ortho recommendation. (5) Full code status Status and Disposition: Hospitalist service will sign off. Do not hesitate to call us with any questions or concerns.
== END 2019-03-17 14:50 | disposition home or self-care (01) | DRG 470 ==
LOC: AA 10:07 → SSU 17:00
PROVIDERS: ADMIT Orthopaedic Surgery Adult Reconstructive Orthopaedic Surgery; ATTEND Orthopaedic Surgery Adult Reconstructive Orthopaedic Surgery
PROC: 5A09357 Assistance with Respiratory Ventilation, Less than 24 Consecutive Hours, Continuous Positive Airway Pressure (ICD-10-PCS; 2019-03-16)
PROC: 0SR904A Replacement of Right Hip Joint with Ceramic on Polyethylene Synthetic Substitute, Uncemented, Open Approach (ICD-10-PCS; principal; 2019-03-16 13:00)
DX: M16.11 Unilateral primary osteoarthritis, right hip (principal); I50.22 Chronic systolic (congestive) heart failure; I42.9 Cardiomyopathy, unspecified; G47.33 Obstructive sleep apnea (adult) (pediatric); E53.8 Deficiency of other specified B group vitamins; Z96.611 Presence of right artificial shoulder joint; Z96.642 Presence of left artificial hip joint; I44.7 Left bundle-branch block, unspecified; E66.9 Obesity, unspecified; E78.2 Mixed hyperlipidemia; E78.00 Pure hypercholesterolemia, unspecified; H91.93 Unspecified hearing loss, bilateral; N40.1 Benign prostatic hyperplasia with lower urinary tract symptoms; R73.01 Impaired fasting glucose; I11.0 Hypertensive heart disease with heart failure; Z95.810 Presence of automatic (implantable) cardiac defibrillator; Z98.42 Cataract extraction status, left eye; Z72.89 Other problems related to lifestyle; Z83.3 Family history of diabetes mellitus; Z82.49 Family history of ischemic heart disease and other diseases of the circulatory system; Z88.8 Allergy status to other drugs, medicaments and biological substances; Z87.891 Personal history of nicotine dependence; Z68.33 Body mass index [BMI] 33.0-33.9, adult; Z86.010 Personal history of colon polyps; Z80.0 Family history of malignant neoplasm of digestive organs; Z82.0 Family history of epilepsy and other diseases of the nervous system
CPT/HCPCS: 36415; 80048; 85014; 85018; 85049; 88304; 88311; 94660; A9270-GY; C1713; C1776; G8978-GP-CJ; G8979-GP-CI; J0690; J2250; J2704; J2795; J3010; J3490